=== PATIENT | female | born 1955 | race Caucasian/White ===

== ENCOUNTER 2023-08-21 16:00 | Inpatient (IN) | payer MEDICARE, SELFPAY ==
[2023-08-21] VITALS (46 sets, daily range): BP systolic 114–163; BP diastolic 40–119; PULSE 58–139; RESP 10–27; TEMP 35.6–36.5; O2SAT 94–100
--- NOTE | 2023-08-21 16:00 | RT.EKG_ITS ---
APPROVED REPORT Exam: Resting ECG Reason for Exam: altered mental status Patient Location: E HR:73 bpm ECG Measurements Heart Rate 73 AXIS CO 220 P 80 QRSd 105 QRS 21 QT 381 T 81 QTc 422 Conclusion Sinus rhythm 73 no stemi
--- NOTE | 2023-08-21 16:15 | DI.RAD_ITS ---
Exam(s) XR CHEST 1V IN DI DEPT EXAM: XR CHEST 1V IN DI DEPT CLINICAL HISTORY: ams TECHNIQUE: 2D digital imaging was performed of the chest. One image was obtained. An AP view was ob tained. COMPARISON: No exams were available for comparison FINDINGS: MEDIASTINUM: Normal. HEART: Normal. PULMONARY VASCULATURE: Normal. LUNGS: Clear. PLEURAL SPACE: No pleural effusion or pneumothorax. BONE:Within normal limits for the patient's age. OTHER FINDINGS:Normal. IMPRESSION: No acute pulmonary findings. DATA REPOSITORY: RADIATION DOSE DELIVERED:
[2023-08-21 16:46] LABS: Abs Immature Grans 0.06 10^3/uL (0.0-0.06); Absolute Basophil Count 0.01 10^3/uL (0.0-0.2); Absolute Eosinophil Count 0.01 10^3/uL (0.0-0.7); Absolute Lymphocyte Count 0.39 10^3/uL (1.2-3.4); Absolute Monocyte Count 0.23 10^3/uL (0.1-0.8); Absolute Neutrophil Count 7.18 10^3/uL (1.2-6.7); Basophils % 0.1 %; Eosinophils % 0.1 %; HCT 26.9 % (36.0-46.0); HGB 8.9 g/dL (11.2-15.7); Immature Grans % 0.8 %; Lymphocytes % 4.9 %; MCH 30.5 pg (27.0-33.0); MCHC 33.1 % (32.0-36.0); MCV 92 fL (80-95); MPV 11.2 fL (8.0-11.0); Monocytes % 2.9 %; Neutrophils % 91.2 %; Nucleated RBC 0.5 % (0.0-0.3); Platelet Count 234 10^3/uL (130-400); RBC 2.92 10^6/uL (3.93-5.22); RDW 16.1 % (11.7-14.6); RDW-SD 53.9 fL; WBC 7.88 10^3/uL (4.4-10.8)
[2023-08-21 16:59] LABS: Ammonia < 10 umol/L (11-32); Diff Comment RBC Morph Reviewed; RBC Morphology Normal
[2023-08-21 17:14] LABS: ALT 33 U/L (14-59); AST 19 U/L (15-37); Albumin 2.9 g/dL (3.4-5.0); Alkaline Phosphatase 195 U/L (46-116); Anion Gap 10.6 mmol/L (3-11); BUN 71 mg/dL (7-18); Bilirubin, Total 0.6 mg/dL (0.2-1.0); CO2 23.4 mmol/L (21.0-32.0); CREATININE 2.3 mg/dL (0.55-1.02); Calcium 10.6 mg/dL (8.5-10.1); Chloride 105 mmol/L (98-107); Estimated GFR 23.01 (mL/min/1.73m2); Glucose 185 mg/dL (74-106); Potassium 5.7 mmol/L (3.5-5.1); Sodium 139 mmol/L (136-145); Total Protein 6.9 g/dL (6.4-8.2); Troponin I < 50 ng/L (< or =60)
[2023-08-21 17:23] LABS: ETHANOL BLOOD < 3.0 mg/dL (<10)
--- NOTE | 2023-08-21 17:24 | DI.CT_ITS ---
Exam(s) CT HEAD WO EXAM: CT HEAD WO CLINICAL HISTORY: ams. TECHNIQUE: Imaging Protocol: Axial computed tomography images with coronal and sagittal reformatted images were created and reviewed COMPARISON: No exams were available for comparison FINDINGS: Ventricles and Extra axial spaces: Normal in size and morphology for the patient's age. Hemorrhage: None. Cerebral parenchyma: Normal. No mass effect. Midline shift: None. Brainstem/Cerebellum: Normal. Calvarium: Normal. Visualized Paranasal sinuses/Mastoids: Small mucous retention cysts are seen in the left maxillary si nus. Soft Tissues: Unremarkable. IMPRESSION: No acute intracranial process. RADIATION DOSE DELIVERED: 763.24mGy.cm Total DLP DATA REPOSITORY: All CT scans at this facility are submitted to the National Radiology Data Registry (NRDR) Dose Index Registry (DIR) with the [employer] (A[employer]). RADIATION OPTIMIZATION: All CT scans at this facility use at least one of these dose optimization te chniques: automated exposure control; mA and/or kV adjustment per patient size (includes targeted exa ms where dose is matched to clinical indication); or iterative reconstruction.
--- NOTE | 2023-08-21 17:41 | DI.VRAD_ITS ---
PROCEDURE INFORMATION: Exam: XR Chest Exam date and time: 08/21/2023 4:59 PM Age: 67 years old Clinical indication: Other: AMS TECHNIQUE: Imaging protocol: Radiologic exam of the chest. Views: 1 view. Total images: 1 COMPARISON: No relevant prior studies available. FINDINGS: Lungs: Lungs are clear without consolidation. Pleural spaces: No pleural effusion or pneumothorax. Heart/Mediastinum: Unremarkable. Diaphragm: Eventration right hemidiaphragm. Bones/joints: Unremarkable. IMPRESSION: No acute findings. Dictated and Authenticated by: Kade Farley MD. Ordering:[facility] Jose Daniel Arechiga MD
--- NOTE | 2023-08-21 17:47 | DI.VRAD_ITS ---
PROCEDURE INFORMATION: Exam: CT Head Without Contrast Exam date and time: 08/21/2023 5:13 PM Age: 67 years old Clinical indication: Altered mental status/memory loss; Patient HX: AMS TECHNIQUE: Imaging protocol: Computed tomography of the head without contrast. Total images: 983 COMPARISON: No relevant prior studies available. FINDINGS: Brain: No intra or extra-axial bleed. No edema. Cortical ribbon and central pereira structures are preserved. Mild cortical atrophy and white matter disease. Cerebral ventricles: No significant hydrocephalus. Basal cisterns are patent. Paranasal sinuses: Mild left maxillary sinus mucosal thickening. Mastoid air cells: No mastoid effusion. Bones: Unremarkable. No acute fracture. Soft tissues: Unremarkable. IMPRESSION: No acute intracranial abnormality. Dictated and Authenticated by: Kade Farley MD. Ordering:LuanneYOLA Arechiga MD
[2023-08-21 18:03] LABS: Bilirubin Negative (Negative); Blood Trace-intact (Negative); Clarity Clear (Clear); Glucose 100 mg/dL (Negative); Ketones Negative (Negative); Leukocyte Esterase Negative (Negative); Nitrite Negative (Negative); Specific Gravity 1.015 (1.005-1.025); Urobilinogen 0.2 mg/dL (Up to 0.2); pH 5.5 (5-8)
[2023-08-21 18:11] LABS: Bacteria Negative HPF (Negative); C & S Indicated? No; Casts 0-2 Hyaline LPF (Negative); Crystals Negative HPF (Negative); Epithelial Cells Rare HPF (Negative); Mucus Trace (Negative); RBC 0-2 HPF (0-2); WBC 0-2 HPF (0-5)
[2023-08-21] MEDS: Albuterol 2.5 MG/3 ML INH SOLN VIAL 5 MG UPD (19:07)
[2023-08-21] MEDS: Insulin REGULAR-Human 100 UNITS/ML UNIT SC (19:08)
--- NOTE | 2023-08-21 19:28 | ED.GENADUL_ITS ---
Discharge Plan Disposition Patient Disposition: Admit to [facility] Condition: Stable Discharge Details Chief Complaint: AMS/LOC Clinical Impression: Steroid-induced psychosis, with hallucinations, Delirium, CKD (chronic kidney disease), Hyperkalemia Primary Care Provider: Unknown,Unknown ED Provider: Ganesh Sky Home Meds and New Rx's Prescriptions: No Action acetaminophen 325 mg capsule 650 mg PO Q4H PRN albuterol-budesonide 90-80 mcg/actuation HFA aerosol inhaler 2 inh inhalation BID PRN Eliquis 5 mg tablet 5 mg PO BID famotidine [Acid Controller] 20 mg tablet 20 mg PO DAILY fluticasone propionate [Allergy Relief (fluticasone)] 50 mcg/actuation spray,suspension 1 spray intranasal BID PRN Rx Instructions: administer into each nostril furosemide 20 mg tablet 20 mg PO DAILY insulin lispro [Humalog KwikPen Insulin] 100 unit/mL insulin pen 1 sliding scale dose subcut USEASDIRECTD melatonin 5 mg capsule 7 mg PO .daily hs polyethylene glycol 3350 [ClearLax] 17 gram powder in packet 17 g PO ONCE PRN Rx Instructions: give if no bowel movement in past 72 hours HPI General Date/Time Provider Initiated Documentation: 08/21/23 16:15 . Limitations to Documentation: altered mental status . Information obtained by: patient, EMS and old records reviewed . HPI Narrative: 67-year-old female with past medical history including asthma, CKD, heart failure, paroxysmal A-fib, CVA, diabetes, sarcoidosis and recent treatment for pneumonia presents from the rehab facility with concerns for altered mental status. Per report, the patient developed altered mental status yesterday. She has been hallucinating and saying things that are very abnormal and confused. The patient was admitted to [facility] with pneumonia and discharged to the rehab facility on August 17. They report that new medicine was started and they are concerned that this is related to that. Patient is not able to provide any additional information at this time Related Data Home Medications Medication Instructions Recorded Confirmed acetaminophen 325 mg capsule 650 mg PO Q4H PRN 08/21/23 08/21/23 albuterol 90 mcg-budesonide 80 2 inh inhalation BID PRN 08/21/23 08/21/23 mcg/actuation HFA aerosol inhaler apixaban 5 mg tablet (Eliquis) 5 mg PO BID 08/21/23 08/21/23 famotidine 20 mg tablet (Acid 20 mg PO DAILY 08/21/23 08/21/23 Controller) fluticasone propionate 50 1 spray intranasal BID PRN 08/21/23 08/21/23 mcg/actuation nasal spray,suspension (Allergy Relief (fluticasone)) furosemide 20 mg tablet 20 mg PO DAILY 08/21/23 08/21/23 insulin lispro 100 unit/mL 1 sliding scale dose subcut 08/21/23 08/21/23 subcutaneous pen (Humalog KwikPen USEASDIRECTD (U-100) Insulin) melatonin 5 mg capsule 7 mg PO .daily hs 08/21/23 08/21/23 polyethylene glycol 3350 17 gram 17 g PO ONCE PRN 08/21/23 08/21/23 oral powder packet (ClearLax) General Stated Complaint: AMS/LOC SUZAN: 3 Exam Narrative Exam Narrative: Review of Systems: All systems reviewed & are unremarkable except as noted in HPI and below Well-developed, no acute distress NCAT PERRL, normal conjunctiva RRR, no murmur Unlabored respiratory effort, coarse bilaterally, no increased respiratory effort or hypoxia Nondistended abdomen nontender Extremities w/o deformity, no cyanosis, no edema No rashes or lesions. no focal neurologic deficits Alert, unable to answer questions, EMS reports that she thought she had a dog in her lap, tells the nurse that Jeovany is going to be here soon Course Vital Signs Vital signs: Vital Signs Temperature 36.5 C 08/21/23 16:06 Pulse 75 08/21/23 16:06 Respiratory Rate 16 08/21/23 16:06 Blood Pressure 126/100 H 08/21/23 16:06 Pulse Oximetry 94 08/21/23 16:06 Temperature 36.5 C 08/21/23 16:06 Temperature Source Temporal Artery Scan 08/21/23 16:06 Pulse 100 H 08/21/23 19:07 Respiratory Rate 19 08/21/23 19:07 Respiratory Effort Normal 08/21/23 16:13 Blood Pressure 126/100 H 08/21/23 16:06 Blood Pressure Position Supine 08/21/23 16:06 Pulse Oximetry 100 08/21/23 19:07 Oxygen Delivery Method Room Air 08/21/23 19:07 Oxygen Flow Rate 0 08/21/23 19:07 Lab/Test Results Lab/Test Results: Laboratory Tests Range/Units 08/21/23 08/21/23 16:40 17:58 WBC (4.4-10.8) 10^3/uL 7.88 RBC (3.93-5.22) 10^6/uL 2.92 L Hgb (11.2-15.7) g/dL 8.9 L Hct (36.0-46.0) % 26.9 L MCV (80-95) fL 92 MCH (27.0-33.0) pg 30.5 MCHC (32.0-36.0) % 33.1 RDW (11.7-14.6) % 16.1 H Plt Count (130-400) 10^3/uL 234 MPV (8.0-11.0) fL 11.2 H Immature Gran % % 0.8 Neutrophils % % 91.2 Lymphocytes % % 4.9 Monocytes % % 2.9 Eosinophils % % 0.1 Basophils % % 0.1 Nucleated RBC % (0.0-0.3) % 0.5 H Absolute Neutrophils (1.2-6.7) 10^3/uL 7.18 H Absolute Lymphocytes (1.2-3.4) 10^3/uL 0.39 L Absolute Monocytes (0.1-0.8) 10^3/uL 0.23 Absolute Eosinophils (0.0-0.7) 10^3/uL 0.01 Absolute Basophils (0.0-0.2) 10^3/uL 0.01 RBC Morphology Normal Sodium (136-145) mmol/L 139 Potassium (3.5-5.1) mmol/L 5.7 H Chloride (98-107) mmol/L 105 Carbon Dioxide (21.0-32.0) mmol/L 23.4 Anion Gap (3-11) mmol/L 10.6 BUN (7-18) mg/dL 71 H Creatinine (0.55-1.02) mg/dL 2.3 H Est GFR (CKD-EPI 2020) (mL/min/1.73m2) 23.01 Glucose (74-106) mg/dL 185 H Calcium (8.5-10.1) mg/dL 10.6 H Magnesium (1.8-2.4) mg/dL 2.0 Total Bilirubin (0.2-1.0) mg/dL 0.6 AST (15-37) U/L 19 ALT (14-59) U/L 33 Alkaline Phosphatase (46-116) U/L 195 H Ammonia (11-32) umol/L < 10 L Troponin I (< or =60) ng/L < 50 Total Protein (6.4-8.2) g/dL 6.9 Albumin (3.4-5.0) g/dL 2.9 L TSH (0.36-3.74) uIU/mL 3.20 Urine Color (Yellow) Yellow Urine Clarity (Clear) Clear Urine pH (5-8) 5.5 Ur Specific [place] (1.005-1.025) 1.015 Urine Protein (Neg-Trace) mg/dL 100 H Urine Ketones (Negative) mg/dL Negative Urine Blood (Negative) Trace-intact H Urine Nitrite (Negative) Negative Urine Bilirubin (Negative) Negative Urine Urobilinogen (Up to 0.2) mg/dL 0.2 Ur Leukocyte Esterase (Negative) Negative Urine RBC (0-2) HPF 0-2 Urine WBC (0-5) HPF 0-2 Ur Epithelial Cells (Negative) HPF Rare Urine Crystals (Negative) HPF Negative Urine Bacteria (Negative) HPF Negative Urine Casts (Negative) LPF 0-2 Hyaline Urine Mucus (Negative) Trace Ur Culture Indicated? No Urine Glucose (Negative) mg/dL 100 H Ethyl Alcohol (<10) mg/dL < 3.0 Medical Decision Making Emergent evaluation of altered mental status. Initial differential includes infectious etiology, steroid psychosis, less likely CVA. I reviewed the medical record and discharge summary from the hospital visit. Patient had multifocal pneumonia and was treated with antibiotics. She also had KENDALL with hyperkalemia thought to be secondary to hypovolemia. She is on apixaban for her A-fib, she has heart failure with preserved EF. Her Lasix was being held secondary to the hypokalemia and renal issues. When she was discharged to the rehab, she was started on steroids due to her history of sarcoidosis. 1900 Lab work reviewed. Anemia noted at 8.9 and 26.9 which appears to be stable from prior. Mild hyperkalemia. Creatinine slightly above baseline which is apparently around 1.8. BUN elevated around 70. I reviewed the prior records and noted that the patient had been had been having hyperkalemia throughout her hospital course and as well and his BUN in the 50s. She has no evidence of urinary tract infection. Chest x-ray and head CT also without acute etiologies explaining her altered mental status. I discussed kidney function changes with the joiner apprentice at [facility]. She does not recommend emergent dialysis and states that it is unlikely her altered mental status is secondary to her uremia. She suspects some azotemia from steroids. Perhaps hypercalcemia from her sarcoidosis which may also be contributing to her increase in creatinine. She does recommend an increased furosemide dose. I noted that it was stopped during her hospitalization, but it is on her med rec from the rehab facility. Discussed with the hospitalist who will admit the patient for delirium further management. Medical Records Medical records reviewed: Yes I reviewed the patient's medical records. Lab Data Lab results reviewed: Yes I reviewed the patient's lab results. Quality:SDOH Health Related Social Needs: No Data to Display PFSH All Active Problems (Updated 08/21/23 @ 20:44 by Ganesh Sky MD) Delirium (Acute) Paroxysmal A-fib (Acute) CKD (chronic kidney disease) (Chronic) Hyperkalemia (Acute) Steroid-induced psychosis, with hallucinations (Acute) Social History Smoking risk assessment performed?: No Housing: prison
--- NOTE | 2023-08-21 19:59 | HPE_ITS ---
Date of service: 08/21/23 Time of Service: 19:59 Assessment and Plan Assessment and plan (1) Steroid-induced psychosis, with hallucinations: Status: Acute Assessment and plan: - Patient began to have auditory hallucinations while at subacute rehab appears to correlate with the initiation of steroids -Will hold steroids at this time and continue to monitor patient's mental status -Head CT negative -While BUN was elevated to 71, and was increased as compared to patient's discharge as compared to 4 days prior to her arrival, case was discussed with nephrology did not believe that BUNs time-ordered. Exploring patient's mental status change (2) Hyperkalemia: Status: Acute Assessment and plan: - Also discussed with nephrology, presumed to be secondary to possible azotemia from steroids -potassium 5.7 emergency department and was given 1 L normal saline -Follow-up repeat potassium (3) CKD (chronic kidney disease): Status: Chronic Assessment and plan: - Patient is comparatively admitted with increased baseline creatinine of about 2.1 is slightly elevated today. -Will follow-up with deon TREJO (4) Paroxysmal A-fib: Status: Acute Assessment and plan: - Continue home Eliquis History of Present Illness History of Present Illness Chief Complaint: AMS Narrative: 66-year-old female with a past medical history of dizziness, CKD, heart failure, paroxysmal A-fib, CVA, diabetes, sarcoidosis who was recently discharged from room 6. She for pneumonia presents from home with severe rehab facility for altered mental status. Per report from rehab facility patient had change from her reported mental status that began yesterday when she was hallucinating apparently having visual and auditory hallucinations. Additionally, reports that patient was started on steroids since being at subacute rehab and this may correlate with her recent mental status change. In the emergency department the patient was noted as having normal vital signs, normal CBC, but did have a CMP that showed a potassium of 5.7, BUN of 70 And a creatinine of 2.3. When reviewing the patient's recent discharge records from [facility] it appears that her potassium at that time was 5.3, her BUN was in the 50s and her creatinine was 2.1. UA was negative as was head CT and chest x-ray. Emergency room physician discussed case with nephrology given concern for encephalopathy due to uremia. Nephrology did not believe patient would require dialysis as BUN is not high enough. However, it is thought that patient may be having a steroid-induced psychosis given timeline appears to line up with initiation of her steroids. While in the emergency department the patient was given IV fluids, emergency room physician paged hospitalist for admission for patient with toxic encephalopathy potentially due steroids. Review of Systems All systems reviewed & are unremarkable except as noted in HPI and below PFSH All Active Problems (Updated 08/21/23 @ 20:44 by Ganesh Sky MD) Delirium (Acute) Paroxysmal A-fib (Acute) CKD (chronic kidney disease) (Chronic) Hyperkalemia (Acute) Steroid-induced psychosis, with hallucinations (Acute) Social History Smoking/Tobacco Use Status: Unknown Smoking risk assessment performed?: Yes Housing: assisted living facility Meds Allergies and Home Medications Home Medications Medication Instructions Recorded Confirmed Type acetaminophen 325 mg capsule 650 mg PO Q4H PRN 08/21/23 08/21/23 History albuterol 90 mcg-budesonide 80 2 inh inhalation BID PRN 08/21/23 08/21/23 History mcg/actuation HFA aerosol inhaler apixaban 5 mg tablet (Eliquis) 5 mg PO BID 08/21/23 08/21/23 History famotidine 20 mg tablet (Acid 20 mg PO DAILY 08/21/23 08/21/23 History Controller) fluticasone propionate 50 1 spray intranasal BID PRN 08/21/23 08/21/23 History mcg/actuation nasal spray,suspension (Allergy Relief (fluticasone)) furosemide 20 mg tablet 20 mg PO DAILY 08/21/23 08/21/23 History insulin lispro 100 unit/mL 1 sliding scale dose subcut 08/21/23 08/21/23 History subcutaneous pen (Humalog KwikPen USEASDIRECTD (U-100) Insulin) melatonin 5 mg capsule 7 mg PO .daily hs 08/21/23 08/21/23 History polyethylene glycol 3350 17 gram 17 g PO ONCE PRN 08/21/23 08/21/23 History oral powder packet (ClearLax) Exam Narrative Exam Narrative: Well-appearing older female lying in bed in no acute distress, awake, alert, oriented to person and place but continues to have ongoing auditory and visual hallucinations, heart regular rhythm, lungs clear to auscultation bilaterally, abdomen soft, nontender, nondistended Results Labs 08/21/23 16:40 08/21/23 16:40 Labs: Laboratory Results - last 24 hr 08/21/23 08/21/23 16:40 17:58 WBC 7.88 RBC 2.92 L Hgb 8.9 L Hct 26.9 L MCV 92 MCH 30.5 MCHC 33.1 RDW 16.1 H Plt Count 234 MPV 11.2 H Immature Gran % 0.8 Neutrophils % 91.2 Lymphocytes % 4.9 Monocytes % 2.9 Eosinophils % 0.1 Basophils % 0.1 Nucleated RBC % 0.5 H Absolute Neutrophils 7.18 H Absolute Lymphocytes 0.39 L Absolute Monocytes 0.23 Absolute Eosinophils 0.01 Absolute Basophils 0.01 RBC Morphology Normal Sodium 139 Potassium 5.7 H Chloride 105 Carbon Dioxide 23.4 Anion Gap 10.6 BUN 71 H Creatinine 2.3 H Est GFR (CKD-EPI 2020) 23.01 Glucose 185 H Calcium 10.6 H Magnesium 2.0 Total Bilirubin 0.6 AST 19 ALT 33 Alkaline Phosphatase 195 H Ammonia < 10 L Troponin I < 50 Total Protein 6.9 Albumin 2.9 L TSH 3.20 Urine Color Yellow Urine Clarity Clear Urine pH 5.5 Ur Specific [place] 1.015 Urine Protein 100 H Urine Ketones Negative Urine Blood Trace-intact H Urine Nitrite Negative Urine Bilirubin Negative Urine Urobilinogen 0.2 Ur Leukocyte Esterase Negative Urine RBC 0-2 Urine WBC 0-2 Ur Epithelial Cells Rare Urine Crystals Negative Urine Bacteria Negative Urine Casts 0-2 Hyaline Urine Mucus Trace Ur Culture Indicated? No Urine Glucose 100 H Ethyl Alcohol < 3.0 Last Vital Signs Temp 97.7 F 08/21/23 16:06 Pulse 100 H 08/21/23 19:07 Resp 19 08/21/23 19:07 BP 126/100 H 08/21/23 16:06 Pulse Ox 100 08/21/23 19:07 Time Spent Time spent with Patient: >75 minutes Time was spent: preparing to see the patient(eg.review tests), obtaining and/or reviewing separately otained hiistory, ordering medications,tests, procedures, referring, communicating with other health client care consultant, indepentently interpreting results, counseling the patient and care coordination
[2023-08-21] MEDS: Normal Saline Flush 10 ML SYR IVP ×2 (20:39→23:43)
[2023-08-21] MEDS: Apixaban 5 MG TAB PO (23:43)
[2023-08-22 03:19] VITALS: BP 128/67; PULSE 70; RESP 18; TEMP 36.3; O2SAT 99
[2023-08-22 06:46] LABS: HCT 23.5 % (36.0-46.0); MCH 30.3 pg (27.0-33.0); MCHC 33.6 % (32.0-36.0); MCV 90 fL (80-95); MPV 11.9 fL (8.0-11.0); Platelet Count 229 10^3/uL (130-400); RBC 2.61 10^6/uL (3.93-5.22); RDW 16.2 % (11.7-14.6); RDW-SD 53.4 fL; WBC 7.67 10^3/uL (4.4-10.8)
[2023-08-22 07:03] LABS: Anion Gap 10.5 mmol/L (3-11); BUN 72 mg/dL (7-18); CO2 24.5 mmol/L (21.0-32.0); CREATININE 2.2 mg/dL (0.55-1.02); Calcium 10.5 mg/dL (8.5-10.1); Chloride 109 mmol/L (98-107); Estimated GFR 24.27 (mL/min/1.73m2); Glucose 114 mg/dL (74-106); Magnesium 2.1 mg/dL (1.8-2.4); Potassium 4.9 mmol/L (3.5-5.1); Sodium 144 mmol/L (136-145)
[2023-08-22 07:17] LABS: HGB 7.9 g/dL (11.2-15.7)
[2023-08-22 07:24] VITALS: BP 130/80; PULSE 62; RESP 18; TEMP 35.2; O2SAT 100
[2023-08-22] MEDS: Furosemide 20 MG TAB PO (07:44)
[2023-08-22] MEDS: Famotidine 20 MG TAB PO (07:44)
[2023-08-22] MEDS: Normal Saline Flush 10 ML SYR IVP (07:44)
--- NOTE | 2023-08-22 09:18 | NUR.NOTE ---
Nursing Note: pt stated good morning puppy no dog in room, pt keeps talking about ready to take everyone 'home'
--- NOTE | 2023-08-22 11:11 | PDOC.CMIN ---
Date of service: 08/22/23 Time of Service: 11:19 Care Management Initial Assmt Initial Assessment REASON FOR HOSPITALIZATION:: toxic encephalopathy PREVIOUS FUNCTIONAL STATUS/SOCIAL/FAMILY SUPPORTS:: Jaye lives in [place] with her s/o, Malcom, and their daughter, Pancho. Her sister, Ursula, is her HCA (Ursula will bring a copy of this form), and is very supportive. Jaye is currently having short term rehab at [facility]. Jaye is independent with ADL's at baseline. CURRENT FUNCTIONAL STATUS:: Tonie was sitting up in her chair when CM met with her. She stated that she is feeling much better today. Her s/o, Malcom, and daughter, Pancho, were in the room visiting. Malcom stated that Tonie had been at [facility] for about a week before being sent to [facility] for short term rehab, where she arrived on 08/18/23. CM explained that once Tonie is medically cleared, she will return to [facility] for continued rehab. Later, CM met with Ursula, Tonie's sister, who reported that she is her HCA, and will provide the form ([facility] also has a copy of this). CM again reviewed the plan for Tonie to return to [facility], which everyone is in agreement with. Ursula requested that CM provide an update tomorrow morning ([phone]), as she is OBS and may be ready for discharge tomorrow. CM will continue to follow. ADVANCE DIRECTIVES:: Not on file; Tonie stated that she has forms at [facility], naming her sister Ursula as HCA. Has patient been provided with info about the portal/API?: Yes Did the patient sign up for the portal?: No CODE STATUS:: Full Code INSURANCE COVERAGE / FINANCIAL ISSUES:: MCR CURRENT HOME/COMMUNITY SERVICES/EQUIPMENT:: Tonie is currently receiving short term rehab at [facility] PRIMARY CARE PHYSICIAN:: not local POTENTIAL DISCHARGE NEEDS:: Coordinated return to [facility] PATIENT/FAMILY EDUCATION NEEDS:: Review discharge instructions and limitations, discussion of self care needs including ask me three. ANTICIPATED BARRIERS TO DISCHARGE:: None identified. TRANSPORTATION:: Via facility w/c van PLAN:: Anticipate Tonie will return to [facility] once medically cleared. CM will coordinate transport with the facility's w/c van. She will follow up with facility providers and her discharge plan of care. CM will continue to follow. PFSH All Active Problems (Updated 08/22/23 @ 15:21 by Jewel Rea) Anemia (Chronic) Delirium (Acute) Paroxysmal A-fib (Acute) CKD (chronic kidney disease) (Chronic) Hyperkalemia (Acute) Steroid-induced psychosis, with hallucinations (Acute) Social History Smoking/Tobacco Use Status: Unknown Smoking risk assessment performed?: Yes Housing: assisted living facility SDOH(Care Management) Screening Will the Patient Participate in the Screening?: Unable to obtain
--- NOTE | 2023-08-22 11:14 | W.ANESVAS ---
Midline Placement Date Performed: 08/22/23 Procedure Time: 11:03 Requesting Provider: Jovanny Gary Procedure Location: Med/Surg Sedation Given (Indicate Dose Given): No Sedation given Patient Mental Status: Awake Sterility: Hand Hygiene, Surgical Cap, Surgical Mask, Sterile Gloves, Sterile Drape/Sheet and Chlorhexidine Laterality: Right Insertion Site: Basilic Midline Device: PowerGlide Pro 20G Catheter Length: 10 cm Midline Procedure Procedure: 1% Lidocaine to skin and subcutaneous tissue with 25g needle and Catheter placed without resistance Dressing: Tegaderm Applied and Statlock Applied Blood Return: Present Flushes: Easily Ultrasound: Sterile probe cover and gel used Ultrasound Image Saved?: Yes Number of Attempts (See previous attempts in note section): 1 Procedure Tolerated: No Complications Procedure Outcome: Successful Procedure Comment:: Technically challenging, very small vessels. Performed By: Qasim Moreno
[2023-08-22 11:31] VITALS: BP 130/65; PULSE 71; RESP 17; TEMP 35.1; O2SAT 98
[2023-08-22 14:58] LABS: HCT 28.5 % (36.0-46.0); HGB 9.2 g/dL (11.2-15.7)
--- NOTE | 2023-08-22 15:13 | PGE_ITS ---
Date of Service Date of service: 08/22/23 Time of Service: 15:13 Assessment and Plan Assessment and plan (1) Steroid-induced psychosis, with hallucinations: Status: Acute Assessment and plan: - Patient began to have auditory hallucinations while at subacute rehab appears to correlate with the initiation of steroids. - Off steroids since admission, continue to monitor patient's mental status - Head CT negative -While BUN was elevated to 71 from 50s at discharge last week, per nephrology not significant enough to cause nidia uremia with MS changes. (2) Hyperkalemia: Status: Acute Assessment and plan: - Also discussed with nephrology, presumed to be secondary to possible azotemia from steroids. Normalized this morning. (3) CKD (chronic kidney disease): Status: Chronic Assessment and plan: - She is near her baseline creatinine of about 2.1 - follow (4) Anemia: Status: Chronic Assessment and plan: Dropped from 8.9 to 7.9 this morning after some IV fluids, but reassuringly 9.2 on repeat this afternoon. Get iron levels with morning labs. (5) Paroxysmal A-fib: Status: Acute Assessment and plan: - Continue home apixaban, held 5/7 am due to drop in hgb/hct, she can resume based on PM hgb. Subjective Subjective Patient reports: tolerating a regular diet and voiding w/o difficulty; denies nausea, shortness of breath or fever Interval history since last seen: She states she feels fine and wants to go home. Per family and her primary RN this morning she was hallucinating a dog, petting it. She denies to me seeing things or hearing things that aren't there. Her breathing has improved, coughi ng less. Exam Narrative Exam Narrative: Well-appearing older female sitting in chair in no acute distress, awake, alert, oriented to person, place, and time. Heart regular rhythm, lungs clear to auscultation bilaterally, abdomen soft, nontender, nondistended. Ext 1-2 + bilateral pitting edema (normal for her per report), not tender. Objective Last Vital Signs Temp 35.1 C L 08/22/23 11:31 Pulse 71 08/22/23 11:31 Resp 17 08/22/23 11:31 BP 130/65 08/22/23 11:31 Pulse Ox 98 08/22/23 11:31 Laboratory Results - last 24 hr 08/21/23 08/21/23 08/21/23 16:40 17:58 21:30 WBC 7.88 RBC 2.92 L Hgb 8.9 L Hct 26.9 L MCV 92 MCH 30.5 MCHC 33.1 RDW 16.1 H Plt Count 234 MPV 11.2 H Immature Gran % 0.8 Neutrophils % 91.2 Lymphocytes % 4.9 Monocytes % 2.9 Eosinophils % 0.1 Basophils % 0.1 Nucleated RBC % 0.5 H Absolute Neutrophils 7.18 H Absolute Lymphocytes 0.39 L Absolute Monocytes 0.23 Absolute Eosinophils 0.01 Absolute Basophils 0.01 RBC Morphology Normal Sodium 139 Cancelled Potassium 5.7 H Cancelled Chloride 105 Cancelled Carbon Dioxide 23.4 Cancelled Anion Gap 10.6 Cancelled BUN 71 H Cancelled Creatinine 2.3 H Cancelled Est GFR (CKD-EPI 2020) 23.01 Cancelled Glucose 185 H Cancelled Calcium 10.6 H Cancelled Magnesium 2.0 Total Bilirubin 0.6 AST 19 ALT 33 Alkaline Phosphatase 195 H Ammonia < 10 L Troponin I < 50 Total Protein 6.9 Albumin 2.9 L TSH 3.20 Urine Color Yellow Urine Clarity Clear Urine pH 5.5 Ur Specific [place] 1.015 Urine Protein 100 H Urine Ketones Negative Urine Blood Trace-intact H Urine Nitrite Negative Urine Bilirubin Negative Urine Urobilinogen 0.2 Ur Leukocyte Esterase Negative Urine RBC 0-2 Urine WBC 0-2 Ur Epithelial Cells Rare Urine Crystals Negative Urine Bacteria Negative Urine Casts 0-2 Hyaline Urine Mucus Trace Ur Culture Indicated? No Urine Glucose 100 H Ethyl Alcohol < 3.0 08/22/23 08/22/23 06:18 14:50 WBC 7.67 RBC 2.61 L Hgb 7.9 L 9.2 L Hct 23.5 L 28.5 L MCV 90 MCH 30.3 MCHC 33.6 RDW 16.2 H Plt Count 229 MPV 11.9 H Immature Gran % Neutrophils % Lymphocytes % Monocytes % Eosinophils % Basophils % Nucleated RBC % Absolute Neutrophils Absolute Lymphocytes Absolute Monocytes Absolute Eosinophils Absolute Basophils RBC Morphology Sodium 144 Potassium 4.9 Chloride 109 H Carbon Dioxide 24.5 Anion Gap 10.5 BUN 72 H Creatinine 2.2 H Est GFR (CKD-EPI 2020) 24.27 Glucose 114 H Calcium 10.5 H Magnesium 2.1 Total Bilirubin AST ALT Alkaline Phosphatase Ammonia Troponin I Total Protein Albumin TSH Urine Color Urine Clarity Urine pH Ur Specific [place] Urine Protein Urine Ketones Urine Blood Urine Nitrite Urine Bilirubin Urine Urobilinogen Ur Leukocyte Esterase Urine RBC Urine WBC Ur Epithelial Cells Urine Crystals Urine Bacteria Urine Casts Urine Mucus Ur Culture Indicated? Urine Glucose Ethyl Alcohol Time Spent with Patient Time Spent with Patient: 35-49 minutes Time was spent: preparing to see the patient(eg.review tests), obtaining and/or reviewing separately otained hiistory, ordering medications,tests, procedures, referring, communicating with other health primary care physician, indepentently interpreting results and counseling the patient
[2023-08-22 15:33] VITALS: BP 112/78; PULSE 68; RESP 17; TEMP 36.5; O2SAT 96
[2023-08-22 19:47] VITALS: BP 124/76; PULSE 66; RESP 18; TEMP 36.6; O2SAT 92
[2023-08-22] MEDS: Apixaban 5 MG TAB PO (22:39)
[2023-08-22 23:40] VITALS: BP 118/60; PULSE 69; RESP 18; TEMP 36.6; O2SAT 98
[2023-08-23 02:49] VITALS: BP 140/71; PULSE 80; RESP 18; TEMP 36.6; O2SAT 92
[2023-08-23 07:02] LABS: HCT 24.7 % (36.0-46.0); HGB 8.2 g/dL (11.2-15.7); MCH 30.6 pg (27.0-33.0); MCHC 33.2 % (32.0-36.0); MCV 92 fL (80-95); MPV 11.8 fL (8.0-11.0); Platelet Count 207 10^3/uL (130-400); RBC 2.68 10^6/uL (3.93-5.22); RDW 16.2 % (11.7-14.6); WBC 8.74 10^3/uL (4.4-10.8)
[2023-08-23 07:15] LABS: Anion Gap 7.2 mmol/L (3-11); BUN 79 mg/dL (7-18); CO2 25.8 mmol/L (21.0-32.0); CREATININE 2.2 mg/dL (0.55-1.02); Calcium 10.1 mg/dL (8.5-10.1); Chloride 109 mmol/L (98-107); Estimated GFR 24.27 (mL/min/1.73m2); Glucose 123 mg/dL (74-106); Potassium 5.2 mmol/L (3.5-5.1); Sodium 142 mmol/L (136-145)
[2023-08-23 07:20] LABS: Iron 58 ug/dL (50-170); Total Iron Binding Capacity 221 ug/dL (250-450); Transferrin Sat 26 % (15-50)
[2023-08-23] MEDS: Furosemide 20 MG TAB PO (08:05)
[2023-08-23] MEDS: Apixaban 5 MG TAB PO (08:05)
[2023-08-23] MEDS: Famotidine 20 MG TAB PO (08:05)
[2023-08-23 08:08] VITALS: BP 166/63; PULSE 80; RESP 16; TEMP 35.9; O2SAT 92
--- NOTE | 2023-08-23 10:27 | PDOC.CMPRO ---
Date of service: 08/23/23 Time of Service: 10:27 Care Management Progress Note Progress Note Text Progress Note Text: S/O: Jaye is medically ready to discharge back to [facility]. CM left a message for her sister Ursula advising her of discharge readiness and plan. Hospitalists is also reaching out to her sister. A: 67 year old female admitted to [facility] on 08/21/23 with toxic encephalopathy P: Anticipate Tonie will return to [facility] once medically cleared. CM will coordinate transport with the facility's w/c van. She will follow up with facility providers and her discharge plan of care. CM will continue to follow. SDOH(Care Management) Screening Will the Patient Participate in the Screening?: Unable to obtain
[2023-08-23 11:15] VITALS: BP 114/62; PULSE 64; RESP 16; TEMP 35; O2SAT 97
--- NOTE | 2023-08-23 13:26 | W.PM.DS.N ---
Date of service: 08/23/23 Time of Service: 13:26 DS: Diagnosis Discharge Diagnosis (1) Steroid-induced psychosis, with hallucinations: Status: Acute Asessment and Plan: Much improved from admission. (2) Hyperkalemia: Status: Acute Asessment and Plan: mild, follow up 1 week (3) CKD (chronic kidney disease): Status: Chronic Asessment and Plan: stable while inpatient from recent admission, but needs nephrology follow up. BP stable. Repeat BMP 1 week (4) Anemia: Status: Chronic Asessment and Plan: stable, normal iron levels, needs EPO therapy due to CKD associated anemia. (5) Paroxysmal A-fib: Status: Acute Asessment and Plan: anticoagulated, no change. Discharge Plan Disposition [facility] Disposition[facility]) Condition: Improving Discharge Details Reason For Visit: Toxic encephalopathy Admit Date/Time: 08/23/23 09:35 Admit Provider: Jovanny Gary Attending Provider: Jovanny Gary Primary Care Provider: Unknown,Unknown Hospital Course Hospital Course: 67 yo F with baseline stage 4 CKD, chronic atrial fibrillation, h/o CVA, and sarcoidosis [facility] with acute hallucinations that started after given steroids at the time of recent discharge from [facility] where she was treated for pneumonia. She was having visual hallucinations of dogs and was disoriented to situation. CT head, u/a, CXR, and ammonia were all reassuring. Initially admitting team did not have her CKD history and were concerned about acute uremia causing her hallucinations, but nephrology consulted in the ED and records obtained that did not show a significant change from the levels a week prior. Her BUN stayed in the 70s and creatinine was 2.3-2.2. Her potassium was 5.7 at admission, then 4.8, 5.2 without specific treatment. Her anemia was stable, with transferrin saturation 25%, and she should follow up for EPO therapy along with the rest of her renal disease care with nephrology. Home Meds and New Rx's Prescriptions: Continued acetaminophen 325 mg capsule 650 mg PO Q4H PRN albuterol-budesonide 90-80 mcg/actuation HFA aerosol inhaler 2 inh inhalation BID PRN Eliquis 5 mg tablet 5 mg PO BID famotidine [Acid Controller] 20 mg tablet 20 mg PO DAILY fluticasone propionate [Allergy Relief (fluticasone)] 50 mcg/actuation spray,suspension 1 spray intranasal BID PRN Rx Instructions: administer into each nostril furosemide 20 mg tablet 20 mg PO DAILY insulin lispro [Humalog KwikPen Insulin] 100 unit/mL insulin pen 1 sliding scale dose subcut USEASDIRECTD melatonin 5 mg capsule 7 mg PO .daily hs polyethylene glycol 3350 [ClearLax] 17 gram powder in packet 17 g PO ONCE PRN Rx Instructions: give if no bowel movement in past 72 hours Discharge Instructions Instructions: Chronic Kidney Disease (DC), Chronic Kidney Disease Diet (DC) Additional Instructions: follow up with nephrology (kidney specialist) at [facility]. You should check the kidneys again with a blood test in a week. avoid oral or IV steroids in the future Activity:: Activity as Tolerated Equipment/Supplies:: Blood Glucose Monitor Diet:: low potassium/renal Discharge Orders Discharge Orders: Discharge Order (Routine); Ordered 08/23/23 Ordered By: Jewel Rea Other Ambulatory Orders: Basic Metabolic Panel (Routine) Timeframe: 1 Week Facility: [facility] - Location: Laboratory Outpatient - [facility] Ordered By: Jewel Rea Complete Blood Count w/Diff (Routine) Timeframe: 1 Week Facility: [facility] - Location: Laboratory Outpatient - [facility] Ordered By: Jewel Rea DS: Summary Time Spent with Patient providing and/or coordinating discharge services: Greater than 30 minutes Status at Discharge Functional status at discharge: uses cane/walker Overall status at discharge: patient is progressing back to baseline Mental Status: mental status grossly normal Speech and Movement: speech and movement normal Mood: congruent mood Affect: normal affect Quality:SDOH Health Related Social Needs: No Data to Display Exam Narrative Exam Narrative: Well-appearing older female sitting in chair in no acute distress, awake, alert, oriented to person, place, and time. Heart regular rhythm, lungs clear to auscultation bilaterally, abdomen soft, nontender, nondistended. Ext 1+ bilateral pitting edema (normal for her per report), not tender. Psych Mental Status: mental status grossly normal Speech and Movement: speech and movement normal Mood: congruent mood Affect: normal affect DS: Data Vitals/I&O Vitals and I&O: Vital Signs Temperature 35.0 C L 08/23/23 11:15 Temperature Source Tympanic 08/23/23 11:15 Pulse 64 08/23/23 11:15 Pulse Rhythm Regular 08/23/23 10:14 Pulse 115 H 08/21/23 20:31 Respiratory Rate 16 08/23/23 11:15 Respiratory Effort Normal 08/23/23 10:14 Respiratory Depth Normal 08/23/23 10:14 Respiratory Pattern Normal 08/23/23 10:14 Blood Pressure 114/62 08/23/23 11:15 Blood Pressure Mean 124 08/21/23 20:31 Blood Pressure Position Supine 08/21/23 16:06 Pulse Oximetry 97 08/23/23 11:15 Oxygen Delivery Method Room Air 08/23/23 11:15 Oxygen Flow Rate 0 08/23/23 11:15 Pain Level 0 08/23/23 11:15 Intake & Output 08/22/23 08/23/23 08/23/23 23:59 11:59 23:59 Intake Total 240 / 720 360 / 360 Output Total 100 / 450 500 / 500 Balance 140 / 270 360 / -140 -500 / -140 Intake: Oral 240 / 720 360 / 360 Output: Urine 100 / 450 500 / 500 Other: Urine Color Yellow Yellow Urine Appearance Clear Clear Urine Odor None Comment mixed with stool mixed with stool/cloudy Stool Size Smear Moderate Moderate Stool Characteristics Soft Formed Formed Hard Brown Voiding Methods Diaper Incontinent Data Completed and Pending Labs on day of discharge: Labs from last 24 hours 08/23/23 08/22/23 06:13 14:50 WBC 8.74 RBC 2.68 L Hgb 8.2 L 9.2 L Hct 24.7 L 28.5 L MCV 92 MCH 30.6 MCHC 33.2 RDW 16.2 H Plt Count 207 MPV 11.8 H Sodium 142 Potassium 5.2 H Chloride 109 H Carbon Dioxide 25.8 Anion Gap 7.2 BUN 79 H Creatinine 2.2 H Est GFR (CKD-EPI 2020) 24.27 Glucose 123 H Calcium 10.1 Iron 58 TIBC 221 L Transferrin % Sat 26 PFSH All Active Problems (Updated 08/22/23 @ 15:21 by Jewel Rea) Anemia (Chronic) Delirium (Acute) Paroxysmal A-fib (Acute) CKD (chronic kidney disease) (Chronic) Hyperkalemia (Acute) Steroid-induced psychosis, with hallucinations (Acute) Social History Smoking/Tobacco Use Status: Unknown Smoking risk assessment performed?: Yes Housing: assisted living facility Time Spent with Patient Time Spent with Patient: 45-69 minutes Time was spent: preparing to see the patient(eg.review tests), obtaining and/or reviewing separately otained hiistory, ordering medications,tests, procedures, referring, communicating with other health healthcare management consultant, indepentently interpreting results, counseling the patient and care coordination
--- NOTE | 2023-08-23 13:55 | PDOC.CMDIS ---
Date of service: 08/23/23 Time of Service: 13:55 LACE Index Scoring Tool Questions: Length of Stay (in days): 2 Was the patient admitted via the E.D.?: Yes Comorbidities: Liver or Renal Disease E.D. Visits: 1 Answers: Total Score: 11 Risk of Readmission: High Risk Care Management Discharge Plan Reason for Hospitalization: toxic encephalopathy Discharge Plan: Jaye is discharged back to [facility]. She is transported via facility w/c van. Jaye will follow up with facility/community providers and her discharge plan of care as instructed. CM left message for Ursula ([facility]) prior to her discharge. Patient/Family Education Needs: Review discharge instructions, limitations, medications and plan to follow up with outpatient providers. Discuss ask me three. Services Needed at Discharge: Detention Facility ([place] [facility]) [facility] Health Related Social Needs: No Data to Display
--- NOTE | 2023-08-23 14:00 | NUR.NOTE ---
Nursing Note: [facility] to give nurse to nurse report and was unable to reach anyone on unit to give report. Message was left to return the call.
== END 2023-08-23 14:30 | disposition skilled nursing facility (03) | DRG 885 ==
LOC: ER 20:44 → MS 21:05
PROVIDERS: Family Medicine; Admitting Provider Family Medicine; Emergency Provider Emergency Medicine; Visit Provider Family Medicine
DX: F23 Brief psychotic disorder (principal); N18.4 Chronic kidney disease, stage 4 (severe); I50.30 Unspecified diastolic (congestive) heart failure; T38.0X5A Adverse effect of glucocorticoids and synthetic analogues, initial encounter; E87.5 Hyperkalemia; I48.0 Paroxysmal atrial fibrillation; Z86.73 Personal history of transient ischemic attack (TIA), and cerebral infarction without residual deficits; E11.22 Type 2 diabetes mellitus with diabetic chronic kidney disease; Z79.4 Long term (current) use of insulin; D86.9 Sarcoidosis, unspecified; Z79.01 Long term (current) use of anticoagulants; D64.9 Anemia, unspecified
CPT/HCPCS: 36410; 00123; 36415; 36416; 76942; 80048; 80053; 82962; 85027; 93005; 94640; 99285; 70450; 71045; 80320; 81003; 81015; 82140; 83540; 83550; 83735; 84443; 84484; 85014; 85018; 85025; 93010; 99222; 99232; 99239; G0378; J1815; J7613

== ENCOUNTER 2023-08-30 05:18 | Outpatient (REF) | payer MEDICARE, SELFPAY ==
[2023-08-30 05:47] LABS: Abs Immature Grans 0.06 10^3/uL (0.0-0.06); Absolute Basophil Count 0.01 10^3/uL (0.0-0.2); Absolute Eosinophil Count 0.15 10^3/uL (0.0-0.7); Absolute Monocyte Count 0.61 10^3/uL (0.1-0.8); Absolute Neutrophil Count 6.18 10^3/uL (1.2-6.7); Anion Gap 8.8 mmol/L (3-11); BUN 64 mg/dL (7-18); Basophils % 0.1 %; CO2 24.2 mmol/L (21.0-32.0); CREATININE 2.1 mg/dL (0.55-1.02); Calcium 9.5 mg/dL (8.5-10.1); Chloride 110 mmol/L (98-107); Eosinophils % 1.8 %; Estimated GFR 25.67 (mL/min/1.73m2); Glucose 110 mg/dL (74-106); HCT 26.1 % (36.0-46.0); HGB 8.6 g/dL (11.2-15.7); Immature Grans % 0.7 %; Lymphocytes % 15.6 %; MCH 30.7 pg (27.0-33.0); MCV 93 fL (80-95); MPV 12.1 fL (8.0-11.0); Monocytes % 7.3 %; Neutrophils % 74.5 %; Nucleated RBC 0.2 % (0.0-0.3); Platelet Count 154 10^3/uL (130-400); Potassium 5.1 mmol/L (3.5-5.1); RDW 17.2 % (11.7-14.6); Sodium 143 mmol/L (136-145); WBC 8.31 10^3/uL (4.4-10.8)
[2023-08-30 05:53] LABS: Anisocytosis 2+; Diff Comment RBC Morph Reviewed
[2023-08-30 20:46] LABS: Bilirubin Negative (Negative); Blood Moderate (Negative); Clarity Cloudy (Clear); Glucose Negative (Negative); Ketones Negative (Negative); Leukocyte Esterase Moderate (Negative); Nitrite Negative (Negative); Urobilinogen 0.2 mg/dL (Up to 0.2); pH 5.5 (5-8)
[2023-08-30 21:18] LABS: Bacteria Many HPF (Negative); C & S Indicated? Yes; Casts Negative LPF (Negative); Crystals Negative HPF (Negative); Epithelial Cells Rare HPF (Negative); Mucus Negative (Negative); Other Cells Rare Transitional (Negative); WBC >50 HPF (0-5)
== END 2023-08-30 05:19 | disposition home or self-care (01) ==
LOC: LBN 05:18
PROVIDERS: PCP Family Medicine; Visit Provider Family Medicine
DX: D64.9 Anemia, unspecified (principal); N18.9 Chronic kidney disease, unspecified; N39.0 Urinary tract infection, site not specified
CPT/HCPCS: 80048; 87077; 81003; 81015; 85025; 87086; 87186

== ENCOUNTER 2023-09-08 07:52 | Outpatient (REF) | payer MEDICARE, SELFPAY ==
[2023-09-07 18:22] LABS: Abs Immature Grans 0.02 10^3/uL (0.0-0.06); Absolute Basophil Count 0.01 10^3/uL (0.0-0.2); Absolute Eosinophil Count 0.12 10^3/uL (0.0-0.7); Absolute Lymphocyte Count 0.81 10^3/uL (1.2-3.4); Absolute Monocyte Count 0.31 10^3/uL (0.1-0.8); Absolute Neutrophil Count 4.14 10^3/uL (1.2-6.7); Basophils % 0.2 %; Eosinophils % 2.2 %; HCT 26.6 % (36.0-46.0); HGB 8.5 g/dL (11.2-15.7); Immature Grans % 0.4 %; MCH 30.4 pg (27.0-33.0); MCV 95 fL (80-95); MPV 12.1 fL (8.0-11.0); Monocytes % 5.7 %; Neutrophils % 76.5 %; Platelet Count 132 10^3/uL (130-400); RDW 17.9 % (11.7-14.6); RDW-SD 61.3 fL; WBC 5.41 10^3/uL (4.4-10.8)
[2023-09-07 18:34] LABS: Anion Gap 8.7 mmol/L (3-11); BUN 42 mg/dL (7-18); CO2 24.3 mmol/L (21.0-32.0); CREATININE 2.9 mg/dL (0.55-1.02); Calcium 9.4 mg/dL (8.5-10.1); Chloride 104 mmol/L (98-107); Estimated GFR 17.42 (mL/min/1.73m2); Glucose 86 mg/dL (74-106); Potassium 4.1 mmol/L (3.5-5.1); Sodium 137 mmol/L (136-145)
[2023-09-07 19:02] LABS: Diff Comment RBC Morph Reviewed; Hypochromasia 2+
== END 2023-09-08 07:53 | disposition home or self-care (01) ==
LOC: LBN 07:52
PROVIDERS: PCP Family Medicine; Visit Provider Family Medicine
DX: D64.9 Anemia, unspecified (principal); J18.9 Pneumonia, unspecified organism; N18.4 Chronic kidney disease, stage 4 (severe)
CPT/HCPCS: 80048; 85025

== ENCOUNTER 2023-09-11 14:47 | Inpatient (IN) | payer MEDICARE, SELFPAY ==
[2023-09-11] VITALS (79 sets, daily range): BP systolic 94–222; BP diastolic 26–177; PULSE 59–82; RESP 10–22; TEMP 32.8–36.1; O2SAT 85–100
--- NOTE | 2023-09-11 15:00 | RT.EKG_ITS ---
APPROVED REPORT Exam: Resting ECG Reason for Exam: ams Patient Location: E HR:60 bpm ECG Measurements Heart Rate 60 AXIS WA 218 P 0 QRSd 106 QRS 25 QT 478 T 61 QTc 478 Conclusion Sinus rhythm...normal P axis, V-rate 60- 99 Borderline prolonged WA interval...WA >212, V-rate 50- 90 Probable lateral infarct, old...Q>35mS, abnormal ST-T, V5-6 I aVL sinus rhythm, normal axis, prolonged WA, non ischemic
--- NOTE | 2023-09-11 15:25 | ED.GENADUL_ITS ---
Discharge Plan Disposition Patient Disposition: Admit to [facility] Condition: Stable Discharge Details Chief Complaint: Nausea/Vomit/Diar Clinical Impression: UTI (urinary tract infection), Hypothermia Primary Care Provider: Elmer Perdomo ED Provider: Remington Rubio Home Meds and New Rx's Prescriptions: No Action acetaminophen 325 mg capsule 650 mg PO Q4H PRN albuterol-budesonide 90-80 mcg/actuation HFA aerosol inhaler 2 inh inhalation BID PRN Eliquis 5 mg tablet 5 mg PO BID famotidine [Acid Controller] 20 mg tablet 20 mg PO DAILY fluticasone propionate [Allergy Relief (fluticasone)] 50 mcg/actuation spray,suspension 1 spray intranasal BID PRN Rx Instructions: administer into each nostril furosemide 20 mg tablet 20 mg PO DAILY insulin lispro [Humalog KwikPen Insulin] 100 unit/mL insulin pen 1 sliding scale dose subcut USEASDIRECTD melatonin 5 mg capsule 7 mg PO .daily hs polyethylene glycol 3350 [ClearLax] 17 gram powder in packet 17 g PO ONCE PRN Rx Instructions: give if no bowel movement in past 72 hours HPI General Date/Time Provider Initiated Documentation: 09/11/23 14:54 . HPI Narrative: 67-year-old female history of delirium anemia A-fib CKD presents brought in by EMS from group home for evaluation of nausea and vomiting. Related Data Home Medications Medication Instructions Recorded Confirmed acetaminophen 325 mg capsule 650 mg PO Q4H PRN 08/21/23 09/11/23 albuterol 90 mcg-budesonide 80 2 inh inhalation BID PRN 08/21/23 09/11/23 mcg/actuation HFA aerosol inhaler apixaban 5 mg tablet (Eliquis) 5 mg PO BID 08/21/23 09/11/23 famotidine 20 mg tablet (Acid 20 mg PO DAILY 08/21/23 09/11/23 Controller) fluticasone propionate 50 1 spray intranasal BID PRN 08/21/23 09/11/23 mcg/actuation nasal spray,suspension (Allergy Relief (fluticasone)) furosemide 20 mg tablet 20 mg PO DAILY 08/21/23 09/11/23 insulin lispro 100 unit/mL 1 sliding scale dose subcut 08/21/23 08/21/23 subcutaneous pen (Humalog KwikPen USEASDIRECTD (U-100) Insulin) melatonin 5 mg capsule 7 mg PO .daily hs 08/21/23 09/11/23 polyethylene glycol 3350 17 gram 17 g PO ONCE PRN 08/21/23 09/11/23 oral powder packet (ClearLax) Allergies Allergy/AdvReac Type Severity Reaction Status Date / Time prednisone AdvReac Severe Psychosis Verified 09/11/23 20:51 latex AdvReac Intermediate Skin Rash Unverified 09/11/23 20:51 metformin AdvReac Mild Unknown Unverified 09/11/23 20:51 General Stated Complaint: Nausea/Vomit/Diar SUZAN: 3 Review of Systems Narrative: Review of Systems Constitutional: negative Eyes: negative ENT: negative Cardiovascular: negative Respiratory: negative Gastrointestinal: Nausea vomiting : negative Musculoskeletal: negative Skin: negative Neurologic: negative Psych: negative Exam Narrative Exam Narrative: Physical Examination General: alert, awake, cooperative, resting comfortably, no acute distress HEENT: normocephalic, atraumatic; PERRL, EOM intact, conjunctiva normal; no nasal discharge; moist mucous membranes, oral and pharyngeal mucosa normal, tolerating secretions Neck: supple, trachea midline; full ROM Chest: normal to inspection Respiratory: normal respiratory effort, speaking in full sentences, clear to auscultation, no wheezing, rales or rhonchi Cardiac: regular rate, regular rhythm, S1S2 intact, no murmurs rubs or gallops GI: abdomen soft, non-tender, non-distended; no palpable mass or hepatosplenomegaly Skin: no lesions, rashes or trauma appreciated Neuro: Alert and interactive moving all extremities 5-5 strength upper and lower extremities bilaterally, cranial nerves II through XII intact, no nystagmus no truncal ataxia Extremities: Mild peripheral edema to level of ankles Psych: Appropriate mood and affect Course Vital Signs Vital signs: Vital Signs Temperature 36.1 C L 09/11/23 14:48 Pulse 60 09/11/23 14:48 Respiratory Rate 18 09/11/23 14:48 Blood Pressure 100/76 09/11/23 14:48 Pulse Oximetry 100 09/11/23 14:48 Temperature 36.1 C L 09/11/23 14:48 Temperature Source Temporal Artery Scan 09/11/23 14:48 Pulse 60 09/11/23 14:48 Respiratory Rate 18 09/11/23 14:48 Respiratory Effort Normal, Non-Labored 09/11/23 14:54 Blood Pressure 100/76 09/11/23 14:48 Blood Pressure Position Supine 09/11/23 14:48 Pulse Oximetry 100 09/11/23 14:48 Oxygen Delivery Method Room Air 09/11/23 14:48 Oxygen Flow Rate 0 09/11/23 14:48 Pain Level 0 09/11/23 14:48 Medical Decision Making 67-year-old female presents for group home endorsing nausea and vomiting, denies abdominal pain chest pain or shortness of breath denies headache or weakness. Patient Dors is feeling dehydrated. Alert interactive no focal neurodeficits. Afebrile nontoxic hemodynamically stable. Consider electrolyte derangement versus dehydration versus vertigo versus must consider intracranial hemorrhage given nausea vomiting age and blood thinner use low suspicion for CVA was also consider intra-abdominal process such as cholecystitis appendicitis colitis diverticulitis enteritis. Also consider UTI. Lower consideration for traumatic injury or intoxication. Will obtain labs imaging fluids analgesia antiemetics 21: 35 improving symptomatology after fluids antiemetics and warming, evidence of UTI, mildly elevated lipase with some peripancreatic stranding on CT however nonperitoneal no further vomiting. Will continue with warming and IV fluids will admit to hospital for continued care Quality:SDOH Health Related Social Needs: No Data to Display PFSH All Active Problems (Updated 09/11/23 @ 21:36 by Remington Rubio MD) Hypothermia (Acute) UTI (urinary tract infection) (Acute) Anemia (Chronic) Delirium (Acute) Paroxysmal A-fib (Acute) CKD (chronic kidney disease) (Chronic) Hyperkalemia (Acute) Social History Smoking/Tobacco Use Status: Unknown Smoking risk assessment performed?: Yes Housing: assisted living facility
[2023-09-11 15:47] LABS: Abs Immature Grans 0.05 10^3/uL (0.0-0.06); Absolute Basophil Count 0.01 10^3/uL (0.0-0.2); Absolute Eosinophil Count 0.06 10^3/uL (0.0-0.7); Absolute Lymphocyte Count 0.43 10^3/uL (1.2-3.4); Absolute Monocyte Count 0.37 10^3/uL (0.1-0.8); Absolute Neutrophil Count 5.94 10^3/uL (1.2-6.7); Basophils % 0.1 %; Eosinophils % 0.9 %; HCT 26.1 % (36.0-46.0); HGB 8.7 g/dL (11.2-15.7); Immature Grans % 0.7 %; Lymphocytes % 6.3 %; MCH 30.7 pg (27.0-33.0); MCHC 33.3 % (32.0-36.0); MCV 92 fL (80-95); MPV 12.1 fL (8.0-11.0); Monocytes % 5.4 %; Neutrophils % 86.6 %; Nucleated RBC 0.3 % (0.0-0.3); Platelet Count 108 10^3/uL (130-400); RBC 2.83 10^6/uL (3.93-5.22); RDW 17.7 % (11.7-14.6); RDW-SD 59.4 fL; WBC 6.86 10^3/uL (4.4-10.8)
[2023-09-11] MEDS: Normal Saline 500 ML 1000 ML IV (15:51)
[2023-09-11] MEDS: Ondansetron 4 MG/2 ML VIAL IVP (15:52)
[2023-09-11 16:04] LABS: INR 1.4 (0.9-1.1); PTT Activated 48.6 sec (23.6-32.8); Prothrombin Time 13.7 sec (9.1-11.1)
[2023-09-11 16:10] LABS: ALT 37 U/L (14-59); AST 30 U/L (15-37); Albumin 2.7 g/dL (3.4-5.0); Alkaline Phosphatase 183 U/L (46-116); BUN 35 mg/dL (7-18); Bilirubin, Total 0.5 mg/dL (0.2-1.0); Calcium 9.5 mg/dL (8.5-10.1); Chloride 102 mmol/L (98-107); Estimated GFR 16.73 (mL/min/1.73m2); Glucose 140 mg/dL (74-106); Lipase 108 U/L (16-77); Magnesium 2.5 mg/dL (1.8-2.4); NT-proBNP 453 pg/mL (<300); Potassium 4.3 mmol/L (3.5-5.1); Sodium 135 mmol/L (136-145); TSH (W/Ref FT4) 7.63 uIU/mL (0.36-3.74); Total Protein 6.4 g/dL (6.4-8.2)
[2023-09-11 16:11] LABS: Troponin I 75 ng/L (< or =60)
[2023-09-11 16:23] LABS: COVID-19 PCR Negative (Negative); Influenza A PCR Negative (Negative); Influenza B PCR Negative (Negative); RSV PCR Negative (Negative); Source NASOPHARYNX
[2023-09-11 16:30] LABS: FREE T4 1.05 ng/dL (0.76-1.46)
--- NOTE | 2023-09-11 16:56 | DI.CT_ITS ---
Exam(s) CT ABDOMEN PELVIS WO EXAM: CT ABDOMEN PELVIS WO CLINICAL HISTORY: nausea vomiting. TECHNIQUE: Imaging Protocol: Axial computed tomography images with coronal and sagittal reformatted images were created and reviewed. Oral: no COMPARISON: No exams were available for comparison FINDINGS: Lung Bases: No acute findings. Mild fibrotic changes. Liver: Normal density. No suspicious mass. Gallbladder and biliary tract: Calcified stones. No abnormal gallbladder wall thickening or disten tion. No biliary dilatation. Pancreas: Somewhat atrophic.. No abnormal calcifications. Question of mild inflammation of the head . Spleen: Normal. Kidneys: Normal size, contour and axis. No radiodense stones. No obstructive uropathy. No suspicious masses seen. Adrenal glands: No masses seen. Lymph nodes: Mildly enlarged bilateral groin lymph nodes, presumably reactive. Vasculature: Abdominal aorta non-dilated. Soft tissues: Small fat containing umbilical hernia. Bladder: No wall thickening. No mass or calculi. Bowel: No obstruction or bowel wall thickening. Appendix normal. Peritoneal cavity: No ascites. No focal collection. No mesenteric inflammatory response. Reproductive organs: Status post hysterectomy. 3 centimeter cystic structure to the left of the uppe r vaginal cough. Bones: Unremarkable for age. IMPRESSION: Mild inflammation at the pancreatic head. No pancreatic ductal dilatation. Cholelithiasis. No evidence of acute cholecystitis. 3 centimeters cyst at the left vaginal cuff. RADIATION DOSE DELIVERED: Total DLP DATA REPOSITORY: All CT scans at this facility are submitted to the National Radiology Data Registry (NRDR) Dose Index Registry (DIR) with the [employer] ([employer]). RADIATION OPTIMIZATION: All CT scans at this facility use at least one of these dose optimization te chniques: automated exposure control; mA and/or kV adjustment per patient size (includes targeted exa ms where dose is matched to clinical indication); or iterative reconstruction.
--- NOTE | 2023-09-11 16:56 | DI.CT_ITS ---
Exam(s) CT HEAD WO EXAM: CT HEAD WO CLINICAL HISTORY: ams, vomiting, on AC. TECHNIQUE: Imaging Protocol: Axial computed tomography images with coronal and sagittal reformatted images were created and reviewed COMPARISON: CT CT HEAD WO from 08/21/2023 FINDINGS: Ventricles and Extra axial spaces: Normal in size and morphology for the patient's age. Hemorrhage: None. Cerebral parenchyma: No evidence of acute infarct or mass. Midline shift: None. Brainstem/Cerebellum: Normal. Calvarium: Normal. Visualized Paranasal sinuses:Mucous retention at the floor of the left maxillary sinus. Mastoids: Clear. Soft Tissues: Unremarkable. ORBITS: Unremarkable. PITUITARY: Not enlarged. IMPRESSION: No acute intracranial process. RADIATION DOSE DELIVERED: Total DLP DATA REPOSITORY: All CT scans at this facility are submitted to the National Radiology Data Registry (NRDR) Dose Index Registry (DIR) with the [employer] ([employer]). RADIATION OPTIMIZATION: All CT scans at this facility use at least one of these dose optimization te chniques: automated exposure control; mA and/or kV adjustment per patient size (includes targeted exa ms where dose is matched to clinical indication); or iterative reconstruction.
--- NOTE | 2023-09-11 17:00 | DI.RAD_ITS ---
Exam(s) XR CHEST 2V PA LATERAL EXAM: XR CHEST 2V PA LATERAL CLINICAL HISTORY: vomiting, lethargy TECHNIQUE: 2D digital imaging was performed. Two views. COMPARISON: CR,XR XR CHEST 1V IN DI DEPT from 08/21/2023 FINDINGS: Exam limited by suboptimal pulmonary inflation. HEART: Normal size. Aorta: Not dilated. PULMONARY VASCULATURE: Normal. LUNGS: Clear. PLEURAL SPACE: No pleural effusion or pneumothorax. BONE:Unremarkable for age. Soft tissues: Unremarkable. IMPRESSION: No acute abnormality. DATA REPOSITORY: RADIATION DOSE DELIVERED:
--- NOTE | 2023-09-11 17:31 | DI.VRAD_ITS ---
PROCEDURE INFORMATION: Exam: CT Head Without Contrast Exam date and time: 09/11/2023 4:45 PM Age: 67 years old Clinical indication: Altered mental status/memory loss and other: Vomiting; Confusion or disorientation; Patient HX: AMS, vomiting, on ac TECHNIQUE: Imaging protocol: Computed tomography of the head without contrast. Radiation optimization: All CT scans at this facility use at least one of these dose optimization techniques: automated exposure control; mA and/or kV adjustment per patient size (includes targeted exams where dose is matched to clinical indication); or iterative reconstruction. COMPARISON: CT HEAD WO 08/21/2023 5:13 PM FINDINGS: Brain: No acute intracranial hemorrhage.. There is mild diffuse heterogeneity of the white matter attenuation, consistent with chronic white matter ischemic changes. Mild cerebral atrophy Cerebral ventricles: No ventriculomegaly. Paranasal sinuses: Mucoperiosteal thickening in the left maxillary sinus may represent sinusitis Mastoid air cells: Visualized mastoid air cells are well aerated. Bones: Unremarkable. No acute fracture. Soft tissues: Unremarkable. IMPRESSION: No acute intracranial hemorrhage.. Dictated and Authenticated by: Janet Michaels MD. Ordering:OMI Macedo MD
--- NOTE | 2023-09-11 18:11 | DI.VRAD_ITS ---
Addendum created by Kade Farley MD on 09/11/2023 6:18:05 PM EDT: Mild bilateral inguinal adenopathy, possibly reactive. Initial report created on 09/11/2023 6:10:57 PM EDT: PROCEDURE INFORMATION: Exam: CT Abdomen And Pelvis Without Contrast Exam date and time: 09/11/2023 4:48 PM Age: 67 years old Clinical indication: Nausea and vomiting; Patient HX: Nasuea vomiting TECHNIQUE: Imaging protocol: Computed tomography of the abdomen and pelvis without contrast. Total images: 3383 Radiation optimization: All CT scans at this facility use at least one of these dose optimization techniques: automated exposure control; mA and/or kV adjustment per patient size (includes targeted exams where dose is matched to clinical indication); or iterative reconstruction. COMPARISON: CR XR CHEST 1V IN DI DEPT 08/21/2023 4:59 PM FINDINGS: Diaphragm: Small hiatal hernia. Liver: No nodule. Gallbladder and bile ducts: Faceted gallstones without signs of gallbladder inflammation. Pancreas: Peripancreatic stranding. Spleen: No splenomegaly or splenic nodule. Adrenal glands: No adrenal nodule. Kidneys and ureters: No renal mass. No hydronephrosis. No renal or ureteral calculi. Stomach and bowel: No definite gastric or duodenal wall thickening. No small or large bowel dilatation. No definite bowel wall thickening. Appendix: No evidence of appendicitis. Intraperitoneal space: No free air or free fluid. Vasculature: No abdominal aortic aneurysm. Lymph nodes: Mildly enlarged predominantly fat containing inguinal nodes, left greater than right. Urinary bladder: No definite bladder wall thickening or stone. Reproductive: Hysterectomy. 3.3 cm well-circumscribed thin wall left retrovesicular cyst possibly related to the vaginal cuff. No surrounding inflammatory change. Bones/joints: Partial left-sided sacralization L5. Lower thoracic and L2-L3 degenerative disc disease. Soft tissues: Tiny umbilical hernia. IMPRESSION: 1. Acute interstitial edematous pancreatitis. 2. Cholelithiasis. Dictated and Authenticated by: Kade Farley MD. Ordering:OMI Macedo MD
--- NOTE | 2023-09-11 18:13 | DI.VRAD_ITS ---
PROCEDURE INFORMATION: Exam: XR Chest Exam date and time: 09/11/2023 4:56 PM Age: 67 years old Clinical indication: Other: Nasuea vomitting TECHNIQUE: Imaging protocol: Radiologic exam of the chest. Views: 2 views. Total images: 6 COMPARISON: CR XR CHEST 1V IN DI DEPT 08/21/2023 4:59 PM FINDINGS: Lungs: Lungs are clear without consolidation. Pleural spaces: No pleural effusion or pneumothorax. Heart/Mediastinum: Unremarkable. Diaphragm: Eventration right hemidiaphragm. Bones/joints: Unremarkable. IMPRESSION: No acute findings. Dictated and Authenticated by: Kade Farley MD. Ordering:OMI Macedo MD
[2023-09-11 19:16] LABS: Bilirubin Negative (Negative); Blood Trace-intact (Negative); Clarity Clear (Clear); Glucose Negative (Negative); Ketones Negative (Negative); Leukocyte Esterase Trace (Negative); Nitrite Negative (Negative); Specific Gravity 1.025 (1.005-1.025); Urobilinogen 0.2 mg/dL (Up to 0.2)
[2023-09-11] MEDS: Normal Saline 100 ML 200 ML (19:31)
[2023-09-11] MEDS: cefTRIAXone 1 GM VIAL IM (19:31)
[2023-09-11 19:32] LABS: Bacteria Rare HPF (Negative); C & S Indicated? No/Sq. Contamination; Casts 3-5 Hyaline LPF (Negative); Crystals Negative HPF (Negative); Epithelial Cells Many HPF (Negative); Mucus Trace (Negative); Other Cells Rare Transitional (Negative); RBC 0-2 HPF (0-2); WBC 20-50 HPF (0-5)
[2023-09-11 19:38] LABS: *AMPHETAMINES SCREEN URINE Negative (Negative); *BARBITURATES SCREEN URINE Negative (Negative); *BENZODIAZEPINES SCREEN URINE Negative (Negative); Cannabinoids THC Negative (Negative); Cocaine Screen,Urine Negative (Negative); METHADONE URINE SCREEN Negative (Negative); OPIATES URINE SCREEN Negative (Negative); Tricyclic Antidepressants Negative (Negative)
[2023-09-11 20:07] LABS: Troponin I 74 ng/L (< or =60)
--- NOTE | 2023-09-11 21:47 | NUR.NOTE ---
MAR has been requested 4 times from [facility] since arriving but we have yet to receive it, Meds are confirmed with family members with the exception of Insulin, family did not know what Insulin the pt takes, PAM
--- NOTE | 2023-09-11 22:29 | HPE_ITS ---
Date of service: 09/11/23 Time of Service: 22:29 Assessment and Plan Assessment and plan (1) UTI (urinary tract infection): Status: Acute Assessment and plan: New vomiting and positive urinalysis in a patient with recurrent UTIs. I agree with treating while awaiting cultures. Last culture 09/02 was MDRO klebsiela resistant to ceftriaxone so will change to pip/tazo. I would like to avoid floroquinones. Culture pending. (2) Pancreatitis: Status: Chronic Assessment and plan: CT and lipase suggest pancreatitis, though minimal sympotms. Her GLP-1 puts her at risk for this and it may be the primay cause. No other clear cause such as alcohol or gall stone. Can get u/s in AM to look again. NPO now, will allow clears when ready. Supportive care with fluids, pain management if needed. (3) Stage 4 chronic kidney disease: Status: Acute Assessment and plan: Cr slighty above baseline, follow (4) Elevated troponin: Status: Acute Assessment and plan: No change, and without chest pain or EKG changes this is not ACS. CKD contributing. May be type 2 ischemia related to acute infection Follow in AM or sooner if symptoms. Given full high intensity statin for now. She is anticoagulated as well. (5) Anemia: Status: Chronic Assessment and plan: Stable anemia of CKD. (6) Paroxysmal A-fib: Status: Acute Assessment and plan: continue anticoagulation and rate control. History of Present Illness History of Present Illness Chief Complaint: vomiting Narrative: 67 yo F resident of [facility] with dementia, h/o CVA, CKD4, DM pAfib who was recently admitted for steroid induced delerium with hallucinations after being given steroids who is presenting with 1 day of vomiting. Patient unable to relate history but sister report in her presence. She was in her normal states of health until this morning after breakfast when she got nauseous and started to vomit. Did not improve with antiemetics including ondansatron in the SNF, but continue with vomiting. She did not have blood in her vomit or coffee grounds. Never had diarrhea. She denies abdominal pain. She had some neck pain earlier that was new, but this has resolved. No headaches. She did feel feverish when she got here. Review of Systems All systems reviewed & are unremarkable except as noted in HPI and below PFSH All Active Problems Elevated troponin (Acute) Pancreatitis (Chronic) Stage 4 chronic kidney disease (Acute) Hypothermia (Acute) UTI (urinary tract infection) (Acute) Anemia (Chronic) Delirium (Acute) Paroxysmal A-fib (Acute) Hyperkalemia (Acute) Medical History Dementia Social History Smoking/Tobacco Use Status: Unknown Smoking risk assessment performed?: Yes Housing: house Meds Allergies and Home Medications Allergies Allergy/AdvReac Type Severity Reaction Status Date / Time prednisone AdvReac Severe Psychosis Verified 09/11/23 22:48 azithromycin AdvReac Intermediate Unknown Unverified 09/11/23 22:48 latex AdvReac Intermediate Skin Rash Unverified 09/11/23 22:48 semaglutide [From Ozempic] AdvReac Intermediate Unknown Unverified 09/11/23 22:48 metformin AdvReac Mild Unknown Unverified 09/11/23 22:48 Home Medications Medication Instructions Recorded Confirmed Type acetaminophen 325 mg capsule 650 mg PO Q4H PRN 08/21/23 09/11/23 History albuterol 90 mcg-budesonide 80 2 inh inhalation BID PRN 08/21/23 09/11/23 History mcg/actuation HFA aerosol inhaler apixaban 5 mg tablet (Eliquis) 5 mg PO BID 08/21/23 09/11/23 History famotidine 20 mg tablet (Acid 20 mg PO DAILY 08/21/23 09/11/23 History Controller) fluticasone propionate 50 1 spray intranasal BID PRN 08/21/23 09/11/23 History mcg/actuation nasal spray,suspension (Allergy Relief (fluticasone)) furosemide 20 mg tablet 20 mg PO DAILY 08/21/23 09/11/23 History insulin lispro 100 unit/mL 1 sliding scale dose subcut 08/21/23 08/21/23 History subcutaneous pen (Humalog KwikPen USEASDIRECTD (U-100) Insulin) melatonin 5 mg capsule 7 mg PO .daily hs 08/21/23 09/11/23 History polyethylene glycol 3350 17 gram 17 g PO ONCE PRN 08/21/23 09/11/23 History oral powder packet (ClearLax) Saccharomyces boulardii 250 mg 250 mg PO BID 09/11/23 09/11/23 History capsule (Daily Probiotic (S. boulardii)) bisacodyl 10 mg rectal suppository 10 mg AK DAILY PRN 09/11/23 09/11/23 History (Dulcolax (bisacodyl)) cefpodoxime 100 mg tablet 100 mg PO BID 09/11/23 09/11/23 History cholecalciferol (vitamin D3) 50 2,000 unit PO DAILY 09/11/23 09/11/23 History mcg (2,000 unit) tablet ciprofloxacin HCl 500 mg tablet 500 mg PO BID 09/11/23 09/11/23 History (Cipro) magnesium hydroxide 400 mg/5 mL 5 ml PO DAILY PRN 09/11/23 09/11/23 History oral suspension (Blackman Milk of Magnesia) nystatin 100,000 unit/gram topical 1 applic topical DAILY 09/11/23 09/11/23 History cream ondansetron 4 mg disintegrating 4 mg PO Q6H PRN 09/11/23 09/11/23 History tablet pantoprazole 40 mg granules 40 mg PO DAILY 09/11/23 09/11/23 History delayed-release for susp in packet (Protonix) rosuvastatin 10 mg tablet (Crestor) 10 mg PO DAILY 09/11/23 09/11/23 History sulfamethoxazole 800 1 tab PO DAILY 09/11/23 09/11/23 History mg-trimethoprim 160 mg tablet (Bactrim DS) tirzepatide 5 mg/0.5 mL 7.5 mg subcut QWEEK 09/11/23 09/11/23 History subcutaneous pen injector (Mounjaro) Exam Narrative Exam Narrative: GEN: Alert and oriented to self and time, thought we were in [place]. Pleasent and cooperative with direct commands, but unable to give history (sister relates this). No acute distress at rest. HEENT: Head atraumatic. Conjunctiva clear, no icterus. PEERL, EOMI. no rhinorrhea. MMM, OP benign. Neck is supple with no masses or lymphadenopathy, trachea midline LUNGS: CTAB with normal effort CV: RRR with 2-3/6 systolic murmur RUSB to neck, gallops, or rubs. ABD: +BS, soft, NT/ND EXT: no cyanosis, clubbing. trace nikita ankle edema. pedal pulses 2+ nikita. MSK: No joint redness or swelling NEURO: CN 2-12 grossly intact. Normal movement of 4 extremities. Normal speech and coordination. no tremor SKIN: No rashes or open wounds. shins pink beneath socks in lower shins nikita. PSYCH: normal mood and affect. poor memory Results Imaging Chest x-ray: report reviewed (No acute abnormality. ) and image reviewed Abdomen CT scan report/results: report reviewed (Mild inflammation at the pancreatic head. No pancreatic ductal dilatation. Cholelithiasis. No evidence of acute cholecystitis. 3 centimeters cyst at the left vaginal cuff.) A dditional studies: CT HEAD: No acute intracranial process. EKG: report reviewed and image reviewed (NSR, no ischemic ST-T changes) L abs 09/11/23 15:28 09/11/23 15:28 Labs: Laboratory Results - last 24 hr 09/11/23 09/11/23 09/11/23 15:28 15:37 18:43 WBC 6.86 RBC 2.83 L Hgb 8.7 L Hct 26.1 L MCV 92 MCH 30.7 MCHC 33.3 RDW 17.7 H Plt Count 108 L MPV 12.1 H Immature Gran % 0.7 Neutrophils % 86.6 Lymphocytes % 6.3 Monocytes % 5.4 Eosinophils % 0.9 Basophils % 0.1 Nucleated RBC % 0.3 Absolute Neutrophils 5.94 Absolute Lymphocytes 0.43 L Absolute Monocytes 0.37 Absolute Eosinophils 0.06 Absolute Basophils 0.01 PT 13.7 H INR 1.4 H APTT 48.6 H Sodium 135 L Potassium 4.3 Chloride 102 Carbon Dioxide 20.0 L Anion Gap 13.0 H BUN 35 H Creatinine 3.0 H Est GFR (CKD-EPI 2020) 16.73 Glucose 140 H Calcium 9.5 Magnesium 2.5 H Total Bilirubin 0.5 AST 30 ALT 37 Alkaline Phosphatase 183 H Troponin I 75 H* NT-Pro-B Natriuret Pep 453 H Total Protein 6.4 Albumin 2.7 L Lipase 108 H TSH 7.63 H Free T4 1.05 Urine Color Yellow Urine Clarity Clear Urine pH 7.0 Ur Specific [place] 1.025 Urine Protein >=300 H Urine Ketones Negative Urine Blood Trace-intact H Urine Nitrite Negative Urine Bilirubin Negative Urine Urobilinogen 0.2 Ur Leukocyte Esterase Trace H Urine RBC 0-2 Urine WBC 20-50 H Ur Epithelial Cells Many Urine Crystals Negative Urine Bacteria Rare Urine Casts 3-5 Hyaline Urine Mucus Trace Urine Other Rare Transitional Ur Culture Indicated? No/Sq. Contamination Urine Glucose Negative Urine Opiates Screen Negative Urine Methadone Screen Negative Ur Barbiturates Screen Negative Ur Tricyclics Screen Negative Ur Amphetamines Screen Negative U Benzodiazepines Scrn Negative Urine Cocaine Screen Negative Ur THC Screen Negative COVID-19 Source NASOPHARYNX SARS-CoV-2 (PCR) Negative Influenza Type A (PCR) Negative Influenza Type B (PCR) Negative RSV (PCR) Negative 09/11/23 19:39 WBC RBC Hgb Hct MCV MCH MCHC RDW Plt Count MPV Immature Gran % Neutrophils % Lymphocytes % Monocytes % Eosinophils % Basophils % Nucleated RBC % Absolute Neutrophils Absolute Lymphocytes Absolute Monocytes Absolute Eosinophils Absolute Basophils PT INR APTT Sodium Potassium Chloride Carbon Dioxide Anion Gap BUN Creatinine Est GFR (CKD-EPI 2020) Glucose Calcium Magnesium Total Bilirubin AST ALT Alkaline Phosphatase Troponin I 74 H* NT-Pro-B Natriuret Pep Total Protein Albumin Lipase TSH Free T4 Urine Color Urine Clarity Urine pH Ur Specific [place] Urine Protein Urine Ketones Urine Blood Urine Nitrite Urine Bilirubin Urine Urobilinogen Ur Leukocyte Esterase Urine RBC Urine WBC Ur Epithelial Cells Urine Crystals Urine Bacteria Urine Casts Urine Mucus Urine Other Ur Culture Indicated? Urine Glucose Urine Opiates Screen Urine Methadone Screen Ur Barbiturates Screen Ur Tricyclics Screen Ur Amphetamines Screen U Benzodiazepines Scrn Urine Cocaine Screen Ur THC Screen COVID-19 Source SARS-CoV-2 (PCR) Influenza Type A (PCR) Influenza Type B (PCR) RSV (PCR) Last Vital Signs Temp 34.3 C L 09/11/23 18:16 Pulse 69 09/11/23 21:48 Resp 11 L 09/11/23 21:50 BP 210/96 H 09/11/23 21:48 Pulse Ox 93 09/11/23 21:50 Time Spent Time spent with Patient: 55-74 minutes Time was spent: preparing to see the patient(eg.review tests), obtaining and/or reviewing separately otained hiistory, ordering medications,tests, procedures, referring, communicating with other health client care representative, indepentently interpreting results, counseling the patient and care coordination
--- NOTE | 2023-09-12 | DI.MRI_ITS ---
Exam(s) MR ABDOMEN WO EXAM: MR ABDOMEN WO CLINICAL HISTORY: cholelithiasis, pancratitis TECHNIQUE: Multiplanar multisequence MRI of the Abdomen was performed. COMPARISON: CT CT ABDOMEN PELVIS WO from 09/11/2023 US US ABDOMEN LIMITED from 09/12/2023 FINDINGS: Exam limited by motion. Lung bases: Clear. Liver: Unremarkable. Pancreas: Mild inflammation seen at the inferior pancreatic head. No evidence of mass. Gallbladder and Bile Ducts: There are 2 adjacent stones seen in the dependent portion of the gallblad marianne. No gallbladder wall thickening. The common bile duct measures 7 millimeters and tapers distall y. No common duct stones. No pancreatic ductal dilatation. Adrenals: Unremarkable. Kidneys: Unremarkable. Spleen: Unremarkable. Aorta: Unremarkable. Soft Tissues: Unremarkable. Bone: Unremarkable. Lymph Nodes: Unremarkable. Bowel: Unremarkable. IMPRESSION: Two adjacent gallstones. No evidence of gallbladder inflammation or biliary dilatation. No common d uct stones. Mild inflammation of the inferior head of the pancreas. DATA REPOSITORY:
[2023-09-12] MEDS: Melatonin 3 MG TAB 6 MG PO ×2 (00:18→21:54)
[2023-09-12 01:10] LABS: MRSA PCR Negative (Negative)
[2023-09-12] MEDS: Normal Saline Flush 10 ML SYR (05:42)
[2023-09-12] MEDS: PIPERACILLIN/TAZO 3.375 GM in Normal Saline 50 ML IVPB (05:42)
--- NOTE | 2023-09-12 06:00 | DI.US_ITS ---
Exam(s) US ABDOMEN LIMITED EXAM: US ABDOMEN LIMITED CLINICAL HISTORY: pancreatitis. cholethiasis, elevated bilirubin TECHNIQUE: Ultrasound abdomen performed using standard protocol. COMPARISON: CT CT ABDOMEN PELVIS WO from 09/11/2023 FINDINGS: PANCREAS: Normal where visualized. LIVER: Normal. Hepatopetal flow in the Portal Vein. The liver measures in 14.3 cm length. No evidence of a hepatic mass. GALLBLADDER:Gallstones are present. No evidence of wall thickening. No pericholecystic fluid identif ied. BILIARY SYSTEM: Common bile duct measures < 7 mm. No intrahepatic biliary ductal dilation. HUNT'S SIGN: Negative. RIGHT KIDNEY: Kidney is normal in size. No evidence of renal calculi. No evidence of hydronephrosis. No renal mass or cyst identified. ASCITES: None seen. IMPRESSION: Cholelithiasis. No sonographic evidence to suggest acute cholecystitis. DATA REPOSITORY:
[2023-09-12 07:27] LABS: Abs Immature Grans 0.04 10^3/uL (0.0-0.06); Absolute Basophil Count 0.01 10^3/uL (0.0-0.2); Absolute Eosinophil Count 0.08 10^3/uL (0.0-0.7); Absolute Lymphocyte Count 0.58 10^3/uL (1.2-3.4); Absolute Monocyte Count 0.37 10^3/uL (0.1-0.8); Absolute Neutrophil Count 4.81 10^3/uL (1.2-6.7); Basophils % 0.2 %; Eosinophils % 1.4 %; HCT 24.1 % (36.0-46.0); HGB 7.8 g/dL (11.2-15.7); Immature Grans % 0.7 %; Lymphocytes % 9.8 %; MCH 30.6 pg (27.0-33.0); MCHC 32.4 % (32.0-36.0); MCV 95 fL (80-95); MPV 12.2 fL (8.0-11.0); Monocytes % 6.3 %; Neutrophils % 81.6 %; Nucleated RBC 0.3 % (0.0-0.3); RBC 2.55 10^6/uL (3.93-5.22); RDW 18.6 % (11.7-14.6); RDW-SD 63.4 fL; WBC 5.89 10^3/uL (4.4-10.8)
[2023-09-12 07:42] LABS: INR 1.3 (0.9-1.1); Prothrombin Time 12.9 sec (9.1-11.1)
[2023-09-12 07:49] LABS: ALT 29 U/L (14-59); AST 39 U/L (15-37); Albumin 2.2 g/dL (3.4-5.0); Alkaline Phosphatase 158 U/L (46-116); Anion Gap 9.5 mmol/L (3-11); BUN 32 mg/dL (7-18); Bilirubin, Total 0.4 mg/dL (0.2-1.0); CO2 20.5 mmol/L (21.0-32.0); CREATININE 2.7 mg/dL (0.55-1.02); Calcium 8.9 mg/dL (8.5-10.1); Chloride 105 mmol/L (98-107); Estimated GFR 18.98 (mL/min/1.73m2); Glucose 62 mg/dL (74-106); Potassium 5.8 mmol/L (3.5-5.1); Sodium 135 mmol/L (136-145); Total Protein 5.9 g/dL (6.4-8.2)
[2023-09-12 07:51] VITALS: BP 96/64; PULSE 59; RESP 18; TEMP 35.8; O2SAT 99
[2023-09-12 07:59] LABS: Troponin I 77 ng/L (< or =60)
[2023-09-12 08:12] LABS: Diff Comment Diff Reviewed; Hypochromasia 1+; Platelet Count 89 10^3/uL (130-400)
[2023-09-12 08:18] LABS: Hemoglobin A1C 6.2 % (<5.7)
[2023-09-12] MEDS: Lactobacillus Acidophilus CAP 1 CAP PO ×2 (08:30→21:55)
[2023-09-12] MEDS: Famotidine 20 MG TAB PO (08:30)
[2023-09-12] MEDS: Rosuvastatin 10 MG TAB 20 MG PO (08:31)
--- NOTE | 2023-09-12 09:00 | RT.EKG_ITS ---
APPROVED REPORT Exam: Resting ECG Reason for Exam: elevated troponin Patient Location: I HR:66 bpm ECG Measurements Heart Rate 66 AXIS ND [id number] P [id number] QRSd 121 QRS 21 QT 454 T 31 QTc 476 Conclusion Sinus rhythm 1st degree AV block
[2023-09-12] MEDS: Normal Saline 500 ML 1000 ML IV (09:06)
[2023-09-12] MEDS: Pantoprazole 40 MG VIAL IVP (09:07)
--- NOTE | 2023-09-12 09:32 | INITIAL_ITS ---
Date of service: 09/12/23 Time of Service: 09:32 Care Management Initial Assmt Initial Assessment Reason for Hospitalization: UTI, Liver Disease Functional Status/Living Situation Patient Presentation: Jaye has been at [facility] for STR since 08/18/23. Her home is in [place], where she lives with her Daughter Palomo, whom is developmentally delayed. Jaye had a stroke 3 years ago and has since managed at home with the help of her daughter and sister Ursula. Ursula provides her transportation and helps her with pay her bills, they are currently in the process of getting DPOA paperwork, however finding legal support for the document has been a challenge. Ursula lives in [place] and visits Jaye every other day. Town of Residence: [place] Resides with: Child (Daughter Pancho, Developmentally Delayed. ) Significant Other/Family: [facility] [employer] Employment Status: Disabled Instrumental Activities of Daily Living (ADLs): Requires support with Transportation Medications Medication Management: No Issues/Barriers identified Advance Directives Advance Directives: Do you have an Advance Directive: N 08/21/23 21:05 AD On File at [facility]: N 08/21/23 18:39 Date Asked 08/21/23 08/21/23 18:39 AD Date Reviewed COLST On File at [facility] No 09/11/23 14:56 COLST Date Scanned Code Status Resuscitation Status Full Code Portal Pt does not currently have a portal and education provided: No Insurance Coverage/Financial Issues Insurance: [facility] ACO Member: No Care Team Visit Care Team Role Provider Type Elmer Perdomo Primary Care Provider MD [facility] STAFF PHYSICIAN Remington Rubio MD Emergency Provider [facility] STAFF PHYSICIAN Jewel Rea Admit Provider [facility] STAFF PHYSICIAN Attending Provider Discharge Potential Discharge Needs: PT Evaluation Transportation: Facility Transport Plan: Anticipate Jaye will discharge back to [facility] for STR when medically cleared by provider. Pt will transport via facility can. Pt will follow up with community providers and her discharge plan of care as instructed. PFSH All Active Problems (Updated 09/12/23 @ 22:06 by Elisa Harris DO) Sarcoid (Acute) CVA (cerebral vascular accident) (Chronic) CHF (congestive heart failure) (Chronic) History of radiation therapy (Acute) Pelvic for endometrial cancer Environmental allergies (Acute) Asthma (Chronic) Type II diabetes mellitus (Acute) Endometrial cancer, FIGO stage IIIB (Acute) That was treated with surgery and radiation in 2015 Gallstones without obstruction of gallbladder (Acute) Arterial atherosclerosis (Acute) Obesity, Class III, BMI 40-49.9 (morbid obesity) (Acute) Elevated troponin (Acute) Pancreatitis (Chronic) Stage 4 chronic kidney disease (Acute) Hypothermia (Acute) UTI (urinary tract infection) (Acute) Anemia (Chronic) Delirium (Acute) Paroxysmal A-fib (Acute) Hyperkalemia (Acute) Medical History (Updated 09/12/23 @ 22:06 by Elisa Harris DO) Dementia Surgical History (Updated 09/12/23 @ 21:52 by Elisa Harris DO) S/P GOYO (total abdominal hysterectomy) Social History Smoking/Tobacco Use Status: Unknown Smoking risk assessment performed?: Yes Housing: house SDLA(Care Management) Screening Will the Patient Participate in the Screening?: Yes Do you worry about having a steady place to live?: no In the past 12 months, have you had to go without electric, gas, oil or water in your home?: no Have you or anyone in your house had to go without enough food to eat?: no Has lack of transportation kept you from medical appointments or from doing things needed for daily living?: no Has anyone in your support network made you feel unsafe for any reason?: no
--- NOTE | 2023-09-12 10:00 | DI.US_ITS ---
APPROVED REPORT EXAM: Comprehensive 2D, Doppler, and color-flow Echocardiogram Patient Location: In-Patient Room/Bed: [address] Worker: Osiris Davenport RT (R) (CT) [facility] Rhythm: NSR Indications: Elevated troponin I levels, evaluate LV and RV function. Other Information Study Quality: Adequate Conclusion Mild concentric left ventricular hypertrophy. Ejection fraction is 60%. Wall motion is normal Normal right ventricular size and function Left atrium is normal in size. Right atrium is mildly dilated There is a small ASD/PFO with [id number] flow Aortic valve is sclerotic and probably trileaflet. There is moderate aortic stenosis. Peak gradient is 40, mean 20 mmHg. Calculated aortic valve area is 1 to 1.1 cm?? Thickened mitral leaflets with trace regurgitation Normal tricuspid valve with mild regurgitation. Estimated right ventricular systolic pressure is 29 mmHg Wall motion Left Ventricle The left ventricle is normal size. The left ventricular systolic function is normal. The left ventric ular ejection fraction is within the normal range. Mild concentric left ventricular hypertrophy. Ther e is normal LV segmental wall motion. The left ventricular diastolic function is normal. There is no ventricular septal defect visualized. LVEF is 60%. Right Ventricle The right ventricle is normal size. The right ventricular systolic function is normal. There is diana l right ventricular wall thickness. Moderator band is seen in the right ventricle. Atria The left atrium size is normal. Right atrium is mildly dilated. Small PFO/ASD with left to right flow noted. Qp/Qs : 1.07. Consider RED, if clinically indicated. Aortic Valve Aortic valve is probably trileaflet. Aortic valve is sclerotic Moderate aortic stenosis. Calculated A VA by the continuity equation is ___1.08 cm2. Highest mean aortic valve gradient is _19.6___mmHg. Pea k aortic valve gradient is _40.2___mmHg. Trace aortic regurgitation. Mitral Valve Mitral valve leaflets are thickened. No evidence of mitral valve stenosis. Trace mitral regurgitation . Tricuspid Valve The tricuspid valve is normal in structure. There is no tricuspid valve stenosis. Mild tricuspid regu rgitation. The RVSP is 29 mmHg. Pulmonic Valve The pulmonary valve is normal in structure. There is no pulmonic valvular stenosis. Trace pulmonic re gurgitation. Great Vessels The aortic root is normal in size. The pulmonary artery is normal. Ascending aorta is normal in calib er. Aortic arch is normal in caliber. IVC is normal in size and collapses >50% with inspiration. Pericardium There is no pericardial effusion. There is no pleural effusion. 2D Dimensions IVSD d PLAX 1.08 cm F: 0.6-1.0 Ao Root d 2.88 cm F: 2.7 - 3.3 LVPW d PLAX 0.98 cm F: 0.6 - 1.0 Ao Asc Diam d 2.81 cm F: 2.3 - 3.1 LVID d PLAX 4.75 cm F: 3.8 - 5.2 Prox Ao Arch 2.5 cm LVDs 2.17 cm F: 2.2 - 3.5 IVC Diam exp d SLAX 1.4 cm LV EF Teichholz 85.0 % FS 54.20 % LV EDV (Teich) 104.8 mL LV ESV (Teich) 15.7 mL M-Mode TAPSE 2.53 cm (M/F) >1.7 LA Volume LA Length A4C 6.0 cm LA Length A2C 5.1 cm LA Area A4C s 19.16 cm2 LA Area A2C s 19.01 cm2 LA Vol A4C A-L 52.11 mL LA Vol A2C A-L 60.60 mL LA Vol Biplane A-L 61.1 mL LA Vol/BSA A4C A-L LA Vol/BSA A2C A-L LA Vol/BSA BP A-L 30.5 mL/m2 LA Vol A4C MOD 50.0 mL LA Vol A2C MOD 58.0 mL LA Vol BP MOD 58.3 mL LV Diastology MV E' medial 0.086 (>0.07 m/s) MV E Vmax 1.04 (0.4-1.3 m/s) MV E/E' MED 12.04 (<14) MV A Vmax 1.05 (0.4-1.3 m/s) MV E' lateral 0.103 (>0.1 m/s) E/A Ratio 1.0 MV E/E' LAT 10.11 (<14) MV E' Average 0.095 m/s MV E/E'(average) 10.99 Aortic Valve AoV Vmax 3.17 m/s LVOT Vmax 1.14 m/s AoV Peak Grad 40.2 mmHg LVOT Peak Grad 5.2 mmHg AoV Area (Vmax) 0.99 cm2 LVOT VTI 0.339 m AoV VTI 0.864 m LVOT Mean Grad 2.7 mmHg AoV Mean Humza. 2.10 m/s LVOT SV 93.64 mL AoV Mean Grad 19.6 mmHg LVOT Diam s 1.85 cm AoV Area (VTI) 1.08 cm2 Velocity Ratio 0.36 Mitral Valve MV DT 195 (160-240 msec) Pulm Vein s 0.73 m/s Pulm Vein d 0.45 m/s Pulm Vein a 0.21 m/s Pulmonary Valve RVOT Vmax 0.77 m/s RVOT Peak Gr. 2.4 mmHg RVOT VTI 0.214 m RVOT Mean Gr. 1.3 mmHg Tricuspid Valve RA Pressure 3.00 mmHg TR Vmax 2.53 m/s TV S' 0.14 m/s TR Peak Grad 25.6 mmHg RVSP (TR) 28.7 mmHg Shunt Evaluation Pulmonic VTI (Qp) 21.0 cm Systemic VTI (Qs) 31.9 cm QP / QS 1.07 Pulmonic Diameter 2.4 cm Systemic Diameter 1.9 cm
[2023-09-12 10:11] VITALS: BP 124/60; PULSE 74
[2023-09-12 10:19] LABS: LDH 190 U/L (81-234)
[2023-09-12 10:46] LABS: D-Dimer 431 ng/mlFEU (<500)
[2023-09-12 10:56] LABS: HGB 7.9 g/dL (11.2-15.7)
[2023-09-12 12:03] LABS: Fibrinogen (Stat) (Littleton) 490 mg/dL (208-434)
[2023-09-12] MEDS: PIPERACILLIN/TAZO 2.25 GM in Normal Saline 50 ML IVPB ×3 (12:18→23:15)
[2023-09-12 13:07] VITALS: BP 102/40; PULSE 61; RESP 17; TEMP 36; O2SAT 96
[2023-09-12 14:52] VITALS: BP 107/51; PULSE 60; RESP 18; TEMP 35.8; O2SAT 98
--- NOTE | 2023-09-12 16:03 | W.PM.PROGNOT ---
Date of Service Date of service: 09/12/23 Time of Service: 16:04 Assessment and Plan Assessment and plan (1) Pancreatitis: Status: Chronic Assessment and plan: DDX: GIP/GLP-1 agonist vs gall stones, per my discussion w/ Dr. Harris, she reviewed her US and CT scan and discussed her case w/ the IDENTITY MANAGEMENT DEVELOPER and the nurse anesthetists feel that the patient is not a candidate for surgery at [facility]. I am recommending feeding the patient and if no further attacks of he pancreas and her LFT and lipase normalize then she should return home and get appt w/ a surgeon at [facility] since this is where her membership advisor (Dr. Richards) is located. Qualifiers: Chronicity: acute Pancreatitis type: unspecified pancreatitis type Acute pancreatitis complication: no infection or necrosis Qualified Code(s): K85.90 - Acute pancreatitis without necrosis or infection, unspecified (2) UTI (urinary tract infection): Status: Acute Assessment and plan: Klebsiella pneumohja, ESBL resistance but sensitive to Zosyn, currently on Zosyn which I adjusted her dose for her KENDALL Qualifiers: Urinary tract infection type: acute cystitis Hematuria presence: without hematuria Qualified Code(s): N30.00 - Acute cystitis without hematuria (3) Stage 4 chronic kidney disease: Status: Acute Assessment and plan: continue iv fluids, begin po intake, monitor renal output (4) Elevated troponin: Status: Acute Assessment and plan: likely demand ischemia. no dynamic EKG changes and no symptoms of CP or dyspnea and no RWMA on her echo. (5) Anemia: Status: Chronic Assessment and plan: likely anemia of chronic disease, did have iron studies done last admission (serum iron and TIBC) but no ferritin, reticulocyte count and no B12 or folate levels were done. I will check in the a.m. No evidence of overt bleeding but given her chronic GERD, she ought to have EGD, again will have to be done elsewhere. continue PPI for GI protection. Qualifiers: Anemia type: due to chronic kidney disease Chronic kidney disease stage: stage 4 (severe) Qualified Code(s): N18.4 - Chronic kidney disease, stage 4 (severe); D63.1 - Anemia in chronic kidney disease (6) Paroxysmal A-fib: Status: Acute Assessment and plan: continue anticoagulation and rate control. Subjective Subjective Interval history since last seen: Patient denies any CP, dyspnea or abdominal pain or nausea. She presented yesterday w/ intractable vomiting and was found to have acute pancreatitis and gall stones but no evidence for acute cholecystitis nor acute biliary tract obstruction. She is feeling better today. she had KENDALL in setting of stage 4 CKD w/ rise in her creatinine from baseline of 2.2 or 2.3 to 3.0 yesterday and now is at 2.7. She was given iv fluids yesterday and given a bolus of fluids this morning. US of her liver and GB shows cholelithiasis but no evidence for cholecystitis. She did have mild increase in troponin into the 70's which has not risen. Echo done this morning demonstrated normal LV and RV size and fxn w/ no RWMA but she has moderate A.S. and a PFO w/ left to right shunting. jShe has mild concentric LVH. MRCP was done this afternoon and she just came back from the study so results are pending. I spoke w/ Dr. Harris to consult on this case as it is unclear whether her pancreatitis is d/t gall stones vs Mounjaro (a GIP/GLP-1 agnoist). Per her sister, the patient has been on this for about one year w/ no prior pancreatitis. The sister is aware of the patients CKD and chronic anemia. Patient has had remote EGD and has chronically been on PPI for GERD. Last EGD reportedly done at [facility]. Exam Narrative Exam Narrative: Middle age white female who is alert and oriented, no acute distress Lungs: clear Heart: RRR Abdomen: obese, soft, nontender, normal bowel sounds, nondistended Extremities: no edema bullock w/ clear yellow urine in catheter and bag Objective Last Vital Signs Temp 35.8 C L 09/12/23 14:52 Pulse 60 09/12/23 14:52 Resp 18 09/12/23 14:52 BP 107/51 L 09/12/23 14:52 Pulse Ox 98 09/12/23 14:52 Laboratory Results - last 24 hr 09/11/23 09/11/23 09/11/23 15:28 15:37 18:43 WBC RBC Hgb Hct MCV MCH MCHC RDW Plt Count MPV Immature Gran % Neutrophils % Lymphocytes % Monocytes % Eosinophils % Basophils % Nucleated RBC % Absolute Neutrophils Absolute Lymphocytes Absolute Monocytes Absolute Eosinophils Absolute Basophils RBC Morphology Hypochromasia PT 13.7 H INR 1.4 H APTT 48.6 H Fibrinogen D-Dimer Sodium 135 L Potassium 4.3 Chloride 102 Carbon Dioxide 20.0 L Anion Gap 13.0 H BUN 35 H Creatinine 3.0 H Est GFR (CKD-EPI 2020) 16.73 Glucose 140 H Hemoglobin A1c Calcium 9.5 Magnesium 2.5 H Total Bilirubin 0.5 AST 30 ALT 37 Alkaline Phosphatase 183 H Lactate Dehydrogenase Troponin I 75 H* NT-Pro-B Natriuret Pep 453 H Total Protein 6.4 Albumin 2.7 L Lipase 108 H TSH 7.63 H Free T4 1.05 Urine Color Yellow Urine Clarity Clear Urine pH 7.0 Ur Specific [place] 1.025 Urine Protein >=300 H Urine Ketones Negative Urine Blood Trace-intact H Urine Nitrite Negative Urine Bilirubin Negative Urine Urobilinogen 0.2 Ur Leukocyte Esterase Trace H Urine RBC 0-2 Urine WBC 20-50 H Ur Epithelial Cells Many Urine Crystals Negative Urine Bacteria Rare Urine Casts 3-5 Hyaline Urine Mucus Trace Urine Other Rare Transitional Ur Culture Indicated? No/Sq. Contamination Urine Glucose Negative Urine Opiates Screen Negative Urine Methadone Screen Negative Ur Barbiturates Screen Negative Ur Tricyclics Screen Negative Ur Amphetamines Screen Negative U Benzodiazepines Scrn Negative Urine Cocaine Screen Negative Ur THC Screen Negative COVID-19 Source NASOPHARYNX SARS-CoV-2 (PCR) Negative Influenza Type A (PCR) Negative Influenza Type B (PCR) Negative RSV (PCR) Negative MRSA (TEM-PCR) ABO/Rh Blood Type Recheck O Negative Antibody Screen Direct Antiglob Test 09/11/23 09/11/23 09/12/23 19:39 23:39 06:08 WBC 5.89 RBC 2.55 L Hgb 7.8 L Hct 24.1 L MCV 95 MCH 30.6 MCHC 32.4 RDW 18.6 H Plt Count 89 L MPV 12.2 H Immature Gran % 0.7 Neutrophils % 81.6 Lymphocytes % 9.8 Monocytes % 6.3 Eosinophils % 1.4 Basophils % 0.2 Nucleated RBC % 0.3 Absolute Neutrophils 4.81 Absolute Lymphocytes 0.58 L Absolute Monocytes 0.37 Absolute Eosinophils 0.08 Absolute Basophils 0.01 RBC Morphology See Below Hypochromasia 1+ PT INR APTT Fibrinogen D-Dimer Sodium 135 L Potassium 5.8 H D Chloride 105 Carbon Dioxide 20.5 L Anion Gap 9.5 BUN 32 H Creatinine 2.7 H Est GFR (CKD-EPI 2020) 18.98 Glucose 62 L Hemoglobin A1c 6.2 H Calcium 8.9 Magnesium Total Bilirubin 0.4 AST 39 H ALT 29 Alkaline Phosphatase 158 H Lactate Dehydrogenase Troponin I 74 H* 77 H* NT-Pro-B Natriuret Pep Total Protein 5.9 L Albumin 2.2 L Lipase TSH Free T4 Urine Color Urine Clarity Urine pH Ur Specific [place] Urine Protein Urine Ketones Urine Blood Urine Nitrite Urine Bilirubin Urine Urobilinogen Ur Leukocyte Esterase Urine RBC Urine WBC Ur Epithelial Cells Urine Crystals Urine Bacteria Urine Casts Urine Mucus Urine Other Ur Culture Indicated? Urine Glucose Urine Opiates Screen Urine Methadone Screen Ur Barbiturates Screen Ur Tricyclics Screen Ur Amphetamines Screen U Benzodiazepines Scrn Urine Cocaine Screen Ur THC Screen COVID-19 Source SARS-CoV-2 (PCR) Influenza Type A (PCR) Influenza Type B (PCR) RSV (PCR) MRSA (TEM-PCR) Negative ABO/Rh Blood Type Recheck Cancelled Antibody Screen Direct Antiglob Test 09/12/23 09/12/23 09/12/23 06:21 09:45 10:50 WBC RBC Hgb 7.9 L Hct 25.0 L MCV MCH MCHC RDW Plt Count MPV Immature Gran % Neutrophils % Lymphocytes % Monocytes % Eosinophils % Basophils % Nucleated RBC % Absolute Neutrophils Absolute Lymphocytes Absolute Monocytes Absolute Eosinophils Absolute Basophils RBC Morphology Hypochromasia PT 12.9 H INR 1.3 H APTT 43.0 H Fibrinogen 490 H D-Dimer 431 Sodium Potassium Chloride Carbon Dioxide Anion Gap BUN Creatinine Est GFR (CKD-EPI 2020) Glucose Hemoglobin A1c Calcium Magnesium Total Bilirubin AST ALT Alkaline Phosphatase Lactate Dehydrogenase 190 Troponin I NT-Pro-B Natriuret Pep Total Protein Albumin Lipase TSH Free T4 Urine Color Urine Clarity Urine pH Ur Specific [place] Urine Protein Urine Ketones Urine Blood Urine Nitrite Urine Bilirubin Urine Urobilinogen Ur Leukocyte Esterase Urine RBC Urine WBC Ur Epithelial Cells Urine Crystals Urine Bacteria Urine Casts Urine Mucus Urine Other Ur Culture Indicated? Urine Glucose Urine Opiates Screen Urine Methadone Screen Ur Barbiturates Screen Ur Tricyclics Screen Ur Amphetamines Screen U Benzodiazepines Scrn Urine Cocaine Screen Ur THC Screen COVID-19 Source SARS-CoV-2 (PCR) Influenza Type A (PCR) Influenza Type B (PCR) RSV (PCR) MRSA (TEM-PCR) ABO/Rh O Negative Blood Type Recheck Antibody Screen NEGATIVE Direct Antiglob Test Positive Time Spent with Patient Time Spent with Patient: 35-49 minutes Time was spent: preparing to see the patient(eg.review tests), obtaining and/or reviewing separately otained hiistory, ordering medications,tests, procedures, referring, communicating with other health toddler caregiver, indepentently interpreting results, counseling the patient and care coordination
[2023-09-12] MEDS: Sodium Zirconium Cyclosilicate 10 GM PKT PO ×2 (16:10→21:54)
--- NOTE | 2023-09-12 16:33 | SCONE_ITS ---
Date of service: 09/12/23 Time of Service: 16:34 Assessment and Plan Assessment and plan (1) Elevated troponin: Status: Acute (2) Paroxysmal A-fib: Status: Acute (3) Pancreatitis: Status: Chronic Assessment and plan: This is Tonie second case of pancreatitis this month. It is my understanding that she was at [facility] recently for this problem. And she was transferred to [facility] rehab and rebounded back into the ER with complications from other medications. She started out by having chest pain. She also has a history of GERD. She did have a mild troponin release but this was thought to be due to demand from her anemia due to chronic kidney disease/chronic disease. She was found to have elevated lipase and LFTs. She had a noncontrasted CT which does not show any significant disease. -I did review her MRI. There was minimal inflammation in the head of the pancrease. There are no dilated ducts or stones in the ducts. -I would also consider that the pancreatitis could be from the Mounjaro, and possible giving her a 2wk break from this medication and see how she feels. She is high risk for anethesia/surgery. I did discuss the case with anesthesia. Given her multiple comorbidities/her weight and her chronic kidney disease she is probably best served by having the procedure done at a tertiary center. She would prefer to have the procedure done at [facility]. This is where her supervisor shuttle preparation Dr. Martinez is at. She is urgent but not emergent. She does not currently have any fever or white count. She is pain-free. And she is tolerating a diet. I will have my office make a referral in the a.m. for evaluation and consideration of surgery by the general surgical department. I discussed this with Tonie and her friend. ALEX when medically stable. This document was created with voice activated software and may contain errors. 20 mins spent in direct pt care and 30 in non face to face time Qualifiers: Acute pancreatitis complication: no infection or necrosis Chronicity: a cute Pancreatitis type: unspecified pancreatitis type Qualified Code(s): K 85.90 - Acute pancreatitis without necrosis or infection, unspecified (4) Stage 4 chronic kidney disease: Status: Acute (5) Hyperkalemia: Status: Acute (6) UTI (urinary tract infection): Status: Acute Qualifiers: Hematuria presence: without hematuria Urinary tract infection type: a cute cystitis Qualified Code(s): N30.00 - Acute cystitis without hematuria (7) Anemia: Status: Chronic Qualifiers: Anemia type: due to chronic kidney disease Chronic kidney disease stage: stage 4 (severe) Qualified Code(s): N18.4 - Chronic kidney disease, stage 4 (severe); D63.1 - Anemia in chronic kidney disease (8) Dementia: (9) Arterial atherosclerosis: Status: Acute (10) Gallstones without obstruction of gallbladder: Status: Acute (11) S/P GOYO (total abdominal hysterectomy): (12) Endometrial cancer, FIGO stage IIIB: Status: Acute (13) Type II diabetes mellitus: Status: Acute (14) Asthma: Status: Chronic (15) Environmental allergies: Status: Acute (16) History of radiation therapy: Status: Acute (17) CHF (congestive heart failure): Status: Chronic (18) CVA (cerebral vascular accident): Status: Chronic (19) Sarcoid: Status: Acute History of Present Illness Narrative: Patient is admitted with recurrent pancreatitis that is thought to be due to gallstones. Patient does have a history of alcohol abuse but she is currently not drinking per the patient. She does have a history of stage IV chronic kidney disease. This contributes to her anemia as well as her other chronic medical conditions. She is also in chronic A-fib and does take Eliquis. The anemia as well as her history of severe CHF are thought to be the cause of the troponin release demand ischemia Patient currently has no fever and no white count. Lipase is 108. I did review her noncontrasted CT scan as she cannot have IV contrast due to her chronic kidney disease. she has 2 large gallstonesin her gallbladder currently. These are too large to pass to the cystic duct. She may have had smaller stones that have passed through the duct. There is no signs of acute cholecystitis. I do not see any signs of acute pancreatitis. She may have chronic pancreatitis. Given her chronic anemia, and cardiac disease/and kidney disease, she is a poor candidate for surgery. I do not see any signs of acute cholecystitis/need for any acute surgical intervention. I did review the case with anesthesia. I think she would be best served at a tertiary institution. Review of Systems All systems reviewed & are unremarkable except as noted in HPI and below PFSH All Active Problems (Updated 09/12/23 @ 22:06 by Elisa Harris DO) Sarcoid (Acute) CVA (cerebral vascular accident) (Chronic) CHF (congestive heart failure) (Chronic) History of radiation therapy (Acute) Pelvic for endometrial cancer Environmental allergies (Acute) Asthma (Chronic) Type II diabetes mellitus (Acute) Endometrial cancer, FIGO stage IIIB (Acute) That was treated with surgery and radiation in 2014 Gallstones without obstruction of gallbladder (Acute) Arterial atherosclerosis (Acute) Obesity, Class III, BMI 40-49.9 (morbid obesity) (Acute) Elevated troponin (Acute) Pancreatitis (Chronic) Stage 4 chronic kidney disease (Acute) Hypothermia (Acute) UTI (urinary tract infection) (Acute) Anemia (Chronic) Delirium (Acute) Paroxysmal A-fib (Acute) Hyperkalemia (Acute) Medical History (Updated 09/12/23 @ 22:06 by Elisa Harris DO) Dementia Surgical History (Updated 09/12/23 @ 21:52 by Elisa Harris DO) S/P GOYO (total abdominal hysterectomy) Social History Smoking/Tobacco Use Status: Unknown Smoking risk assessment performed?: Yes Housing: house Exam GI Inspection: large pannus and obesity Palpation: soft, no hernias and No ascites Auscultation: normal bowel sounds Extrem General: no pedal edema and muscle atrophy Other: -mult areas of echymosis Results Last Vital Signs Temp 35.8 C L 09/12/23 14:52 Pulse 60 09/12/23 14:52 Resp 18 09/12/23 14:52 BP 107/51 L 09/12/23 14:52 Pulse Ox 98 09/12/23 14:52 Labs 09/12/23 10:50 09/12/23 17:00 Labs: Laboratory Results - last 24 hr 09/11/23 09/11/23 09/11/23 15:28 18:43 19:39 WBC RBC Hgb Hct MCV MCH MCHC RDW Plt Count MPV Immature Gran % Neutrophils % Lymphocytes % Monocytes % Eosinophils % Basophils % Nucleated RBC % Absolute Neutrophils Absolute Lymphocytes Absolute Monocytes Absolute Eosinophils Absolute Basophils RBC Morphology Hypochromasia PT INR APTT Fibrinogen D-Dimer Sodium Potassium Chloride Carbon Dioxide Anion Gap BUN Creatinine Est GFR (CKD-EPI 2021) Glucose Hemoglobin A1c Calcium Total Bilirubin AST ALT Alkaline Phosphatase Lactate Dehydrogenase Troponin I 74 H* Total Protein Albumin Urine Color Yellow Urine Clarity Clear Urine pH 7.0 Ur Specific [place] 1.025 Urine Protein >=300 H Urine Ketones Negative Urine Blood Trace-intact H Urine Nitrite Negative Urine Bilirubin Negative Urine Urobilinogen 0.2 Ur Leukocyte Esterase Trace H Urine RBC 0-2 Urine WBC 20-50 H Ur Epithelial Cells Many Urine Crystals Negative Urine Bacteria Rare Urine Casts 3-5 Hyaline Urine Mucus Trace Urine Other Rare Transitional Ur Culture Indicated? No/Sq. Contamination Urine Glucose Negative Urine Opiates Screen Negative Urine Methadone Screen Negative Ur Barbiturates Screen Negative Ur Tricyclics Screen Negative Ur Amphetamines Screen Negative U Benzodiazepines Scrn Negative Urine Cocaine Screen Negative Ur THC Screen Negative MRSA (TEM-PCR) ABO/Rh Blood Type Recheck O Negative Antibody Screen Direct Antiglob Test 09/11/23 09/12/23 09/12/23 23:39 06:08 06:21 WBC 5.89 RBC 2.55 L Hgb 7.8 L Hct 24.1 L MCV 95 MCH 30.6 MCHC 32.4 RDW 18.6 H Plt Count 89 L MPV 12.2 H Immature Gran % 0.7 Neutrophils % 81.6 Lymphocytes % 9.8 Monocytes % 6.3 Eosinophils % 1.4 Basophils % 0.2 Nucleated RBC % 0.3 Absolute Neutrophils 4.81 Absolute Lymphocytes 0.58 L Absolute Monocytes 0.37 Absolute Eosinophils 0.08 Absolute Basophils 0.01 RBC Morphology See Below Hypochromasia 1+ PT 12.9 H INR 1.3 H APTT Fibrinogen D-Dimer Sodium 135 L Potassium 5.8 H D Chloride 105 Carbon Dioxide 20.5 L Anion Gap 9.5 BUN 32 H Creatinine 2.7 H Est GFR (CKD-EPI 2020) 18.98 Glucose 62 L Hemoglobin A1c 6.2 H Calcium 8.9 Total Bilirubin 0.4 AST 39 H ALT 29 Alkaline Phosphatase 158 H Lactate Dehydrogenase Troponin I 77 H* Total Protein 5.9 L Albumin 2.2 L Urine Color Urine Clarity Urine pH Ur Specific [place] Urine Protein Urine Ketones Urine Blood Urine Nitrite Urine Bilirubin Urine Urobilinogen Ur Leukocyte Esterase Urine RBC Urine WBC Ur Epithelial Cells Urine Crystals Urine Bacteria Urine Casts Urine Mucus Urine Other Ur Culture Indicated? Urine Glucose Urine Opiates Screen Urine Methadone Screen Ur Barbiturates Screen Ur Tricyclics Screen Ur Amphetamines Screen U Benzodiazepines Scrn Urine Cocaine Screen Ur THC Screen MRSA (TEM-PCR) Negative ABO/Rh Blood Type Recheck Cancelled Antibody Screen Direct Antiglob Test 09/12/23 09/12/23 09:45 10:50 WBC RBC Hgb 7.9 L Hct 25.0 L MCV MCH MCHC RDW Plt Count MPV Immature Gran % Neutrophils % Lymphocytes % Monocytes % Eosinophils % Basophils % Nucleated RBC % Absolute Neutrophils Absolute Lymphocytes Absolute Monocytes Absolute Eosinophils Absolute Basophils RBC Morphology Hypochromasia PT INR APTT 43.0 H Fibrinogen 490 H D-Dimer 431 Sodium Potassium Chloride Carbon Dioxide Anion Gap BUN Creatinine Est GFR (CKD-EPI 2020) Glucose Hemoglobin A1c Calcium Total Bilirubin AST ALT Alkaline Phosphatase Lactate Dehydrogenase 190 Troponin I Total Protein Albumin Urine Color Urine Clarity Urine pH Ur Specific [place] Urine Protein Urine Ketones Urine Blood Urine Nitrite Urine Bilirubin Urine Urobilinogen Ur Leukocyte Esterase Urine RBC Urine WBC Ur Epithelial Cells Urine Crystals Urine Bacteria Urine Casts Urine Mucus Urine Other Ur Culture Indicated? Urine Glucose Urine Opiates Screen Urine Methadone Screen Ur Barbiturates Screen Ur Tricyclics Screen Ur Amphetamines Screen U Benzodiazepines Scrn Urine Cocaine Screen Ur THC Screen MRSA (TEM-PCR) ABO/Rh O Negative Blood Type Recheck Antibody Screen NEGATIVE Direct Antiglob Test Positive
--- NOTE | 2023-09-12 16:41 | PHA.REVIEW2 ---
Pharmacy Admission Review Admission Clinical Review Admission Pharmacy Review: Elevated troponin (Acute) Stage 4 chronic kidney disease (Acute) Hypothermia (Acute) UTI (urinary tract infection) (Acute) Paroxysmal A-fib (Acute) Hyperkalemia (Acute) prednisone Adverse Reaction (Severe, Verified 09/11/23 22:48) Psychosis azithromycin Adverse Reaction (Intermediate, Unverified 09/11/23 22:48) Unknown latex Adverse Reaction (Intermediate, Unverified 09/11/23 22:48) Skin Rash semaglutide [From Ozempic] Adverse Reaction (Intermediate, Unverified 09/11/23 22:48) Unknown metformin Adverse Reaction (Mild, Unverified 09/11/23 22:48) Unknown Resuscitation Status Full Code Height 5 ft Weight 106.912 kg Pharmacy Admission Review Renal Dosing Renal Dosing: BUN 32 mg/dL (7-18) H 09/12/23 06:08 Creatinine 2.7 mg/dL (0.55-1.02) H 09/12/23 06:08 Medications needing adjustments: Intervened (CrCl 22.98 mL/min) List of meds needing interventions: Decreased famotidine from 20mg daily to 10mg q48h Anticoagulation Anticoagulation: Hgb 7.9 g/dL (11.2-15.7) L 09/12/23 10:50 Hct 25.0 % (36.0-46.0) L 09/12/23 10:50 Plt Count 89 10^3/uL (130-400) L 09/12/23 06:08 INR 1.3 (0.9-1.1) H 09/12/23 06:21 Creatinine 2.7 mg/dL (0.55-1.02) H 09/12/23 06:08 DVT Prophylaxis: Reviewed (Order currently on hold) Medications: Apixaban (5mg PO BID) Relevant Labs Relevant Labs: Sodium 135 mmol/L (136-145) L 09/12/23 06:08 Potassium 5.8 mmol/L (3.5-5.1) H D 09/12/23 06:08 Chloride 105 mmol/L (98-107) 09/12/23 06:08 Magnesium 2.5 mg/dL (1.8-2.4) H 09/11/23 15:28 Electrolytes, C-Reactive P, ESR: Reviewed (Na 135, K 5.8 - received Lokeloh, repeat labs pending, INR 1.3, Hgb decreased from 8.7 to 7.9) DM Control DM Control: Glucose 62 mg/dL (74-106) L 09/12/23 06:08 Hemoglobin A1c 6.2 % (<5.7) H 09/12/23 06:08 Finger Stick Blood Glucose 81 1214 Finger Stick Blood Glucose 81 1140 Finger Stick Blood Glucose 81 1140 Finger Stick Blood Glucose 102 0953 Finger Stick Blood Glucose 102 0953 DM Control: Reviewed Insulin Dosing, Diabetic Medication: Has order for SS insulin Cardiac Review Cardiac Review: Troponin I 77 ng/L (< or =60) H* 09/12/23 06:08 NT-Pro-B Natriuret Pep 453 pg/mL (<300) H 09/11/23 15:28 Blood Pressure 107/51 1452 Blood Pressure 102/40 1307 Blood Pressure 124/60 1011 Blood Pressure 96/64 0751 BP, HR, EF%: Reviewed (BP 107/51, HR WNL, troponin slightly increased from 74) QTc Review QTc: Reviewed (478 from 09/11/23) IV to PO Switch IV Medications: Reviewed (Zosyn, pantoprazole, ondansetron) Home Meds Home Med List reviewed: Reviewed Relevent Home Meds Not ordered & why?: acetaminophen (PRN), albuterol/budesonide (no fill history), vitamin D3, Flonase (PRN), furosemide (KENDALL), Miralax (PRN) and Mounjaro (weekly) Current Meds Current Medication Order Review: Intervened Comments: Added IV admission order set Pharmacy Antibiotic Review Relevant Labs: Relevant Labs 09/12/23 09:45 Lactate Dehydrogenase 190 WBC 5.89 10^3/uL (4.4-10.8) 09/12/23 06:08 Temperature 35.8 C Temperature 36.0 C Temperature 35.8 C Pharmacy Antibiotic Activity: C/S review and Renal function adjustment Comments: Patient is on Zosyn (decreased today to 2.25g q6h due to kidney function), day 1 for UTI. Blood cultures are pending
[2023-09-12] MEDS: Normal Saline 1,000 ML 100 ML IV (17:07)
[2023-09-12 17:32] LABS: Anion Gap 10.1 mmol/L (3-11); BUN 31 mg/dL (7-18); CO2 21.9 mmol/L (21.0-32.0); CREATININE 2.8 mg/dL (0.55-1.02); Calcium 8.9 mg/dL (8.5-10.1); Chloride 104 mmol/L (98-107); Estimated GFR 18.17 (mL/min/1.73m2); Glucose 114 mg/dL (74-106); Potassium 4.5 mmol/L (3.5-5.1); Sodium 136 mmol/L (136-145)
[2023-09-12 18:36] VITALS: BP 111/54; PULSE 62; RESP 18; TEMP 36.6; O2SAT 95
[2023-09-12] MEDS: Normal Saline Flush 10 ML SYR IVP ×2 (21:54→23:15)
[2023-09-12 23:18] VITALS: BP 108/50; PULSE 58; RESP 18; TEMP 35.8; O2SAT 96
[2023-09-13 03:12] VITALS: BP 114/58; PULSE 47; RESP 19; TEMP 36; O2SAT 97
[2023-09-13] MEDS: PIPERACILLIN/TAZO 2.25 GM in Normal Saline 50 ML IVPB ×2 (05:03→11:49)
[2023-09-13] MEDS: Sodium Zirconium Cyclosilicate 10 GM PKT PO (05:29)
[2023-09-13 07:24] LABS: Reticulocyte 2.9 % (0.5-2.4)
[2023-09-13 07:26] LABS: Abs Immature Grans 0.03 10^3/uL (0.0-0.06); Absolute Basophil Count 0.01 10^3/uL (0.0-0.2); Absolute Eosinophil Count 0.14 10^3/uL (0.0-0.7); Absolute Lymphocyte Count 0.44 10^3/uL (1.2-3.4); Absolute Monocyte Count 0.42 10^3/uL (0.1-0.8); Basophils % 0.1 %; Eosinophils % 1.6 %; HCT 24.9 % (36.0-46.0); HGB 7.9 g/dL (11.2-15.7); Immature Grans % 0.3 %; MCH 30.7 pg (27.0-33.0); MCHC 31.7 % (32.0-36.0); MCV 97 fL (80-95); MPV 12.4 fL (8.0-11.0); Monocytes % 4.8 %; Neutrophils % 88.2 %; Nucleated RBC 0.3 % (0.0-0.3); RBC 2.57 10^6/uL (3.93-5.22); RDW 19.1 % (11.7-14.6); RDW-SD 68.1 fL; WBC 8.74 10^3/uL (4.4-10.8)
[2023-09-13 07:40] VITALS: BP 104/50; PULSE 54; RESP 17; TEMP 35.8; O2SAT 97
[2023-09-13 07:57] LABS: Iron 63 ug/dL (50-170); Platelet Count 85 10^3/uL (130-400); Total Iron Binding Capacity 266 ug/dL (250-450); Transferrin Sat 24 % (15-50)
[2023-09-13 07:58] LABS: Diff Comment Diff Reviewed; RBC Morphology Normal
[2023-09-13 08:10] LABS: ALT 25 U/L (14-59); AST 25 U/L (15-37); Albumin 2.2 g/dL (3.4-5.0); Alkaline Phosphatase 153 U/L (46-116); BUN 29 mg/dL (7-18); Bilirubin, Total 0.5 mg/dL (0.2-1.0); CREATININE 2.5 mg/dL (0.55-1.02); Calcium 8.8 mg/dL (8.5-10.1); Chloride 106 mmol/L (98-107); Estimated GFR 20.82 (mL/min/1.73m2); Ferritin 119 ng/mL (8-252); Glucose 68 mg/dL (74-106); Potassium 3.5 mmol/L (3.5-5.1); Sodium 139 mmol/L (136-145); Total Protein 5.6 g/dL (6.4-8.2)
[2023-09-13 08:16] LABS: Folate 6.8 ng/mL (8.6-20.0); Vitamin B12 956 pg/mL (193-986)
[2023-09-13 08:19] LABS: Amylase 24 U/L (25-115); Lipase 62 U/L (16-77)
[2023-09-13] MEDS: Lactobacillus Acidophilus CAP 1 CAP PO (08:41)
[2023-09-13] MEDS: Rosuvastatin 10 MG TAB 20 MG PO (08:41)
[2023-09-13] MEDS: Normal Saline Flush 10 ML SYR IVP ×2 (09:19→11:50)
[2023-09-13] MEDS: Folic Acid 1 MG TAB PO (09:19)
[2023-09-13] MEDS: Pantoprazole 40 MG VIAL IVP (09:19)
--- NOTE | 2023-09-13 10:58 | PDOC.CMPRO ---
Date of service: 09/13/23 Time of Service: 10:58 Care Management Progress Note Progress Note Text Progress Note Text: S/O: A: SDOH(Care Management) Screening Will the Patient Participate in the Screening?: Yes Do you worry about having a steady place to live?: no In the past 12 months, have you had to go without electric, gas, oil or water in your home?: no Have you or anyone in your house had to go without enough food to eat?: no Has lack of transportation kept you from medical appointments or from doing things needed for daily living?: no Has anyone in your support network made you feel unsafe for any reason?: no
[2023-09-13 11:14] VITALS: BP 118/46; PULSE 53; RESP 16; TEMP 35.3; O2SAT 99
[2023-09-13 11:28] VITALS: BP 108/51; PULSE 51; RESP 17; TEMP 35.6; O2SAT 100
[2023-09-13] MEDS: Fosfomycin Tromethamine 3 GM PACKET PO (13:27)
--- NOTE | 2023-09-13 13:36 | W.PM.DS.N ---
Date of service: 09/13/23 Time of Service: 13:36 DS: Diagnosis Discharge Diagnosis (1) Pancreatitis: Status: Chronic Asessment and Plan: Gallstone pancreatitis versus medication induced from Mounjaro. Recommendation is to discontinue Mounjaro and avoid all GIP/GLP-1 agonist or any GLP-1 agonist. Recommendation was also made for the patient to seek a general surgery evaluation at a tertiary care center such as the [facility]. Because of her transient troponin elevation she may need an ischemic workup prior to her general surgery however during this hospitalization her troponins were only minimally elevated and not associated with ischemic pain or dyspnea and her echocardiogram showed normal LV systolic function with mild LVH. She does have some valvular heart disease including aortic stenosis and has a PFO. Therefore would be prudent for her to see cardiology prior to any operation. (2) UTI (urinary tract infection): Status: Acute Asessment and Plan: Patient treated with Zosyn x 3 days for an ESBL Klebsiella pneumoniae. Patient will continue on fosfomycin 3 g orally every 3 days for 2 more doses. She got 1 dose on the day of discharge. Repeat urinalysis to be done in 1 week. (3) Elevated troponin: Status: Acute Asessment and Plan: As noted above transient elevation of her troponin up to 77 not associated with ischemic EKG changes and no regional wall motion abnormality on her echocardiogram. Further ischemic workup can be pursued as an outpatient. (4) Paroxysmal A-fib: Status: Acute Asessment and Plan: Patient was in sinus rhythm during hospitalization. She remains on apixaban for stroke prevention. She has a history of a previous stroke. (5) Stage 4 chronic kidney disease: Status: Acute Asessment and Plan: Patient treated for KENDALL superimposed on her CKD. Patient was given IV fluids also received Lokelma for hyperkalemia. Please repeat her BMP within a week. (6) Hyperkalemia: Status: Acute (7) Anemia: Status: Chronic Asessment and Plan: Patient has a stable anemia of chronic kidney disease but subsequently found to have folate deficiency. Patient begun on folic acid 1 mg p.o. daily. Please repeat her CBC in a week. Recommend repeat folate level in 6 to 8 weeks. (8) Gallstones without obstruction of gallbladder: Status: Acute Asessment and Plan: General surgical consultation was obtained with Dr. Elisa Harris and she discussed case with [facility] anesthesia team. Because of the patient's multiple comorbidities felt to be too complex for surgery here at [facility]. As the patient had no evidence of acute cholecystitis there is no need for urgent surgery but is recommend that she see a general surgeon at tertiary care center where she can be evaluated by the rest of her medical team including her vp human resources and cardiology. Patient and her sister opting for outpatient referral to [facility]. (9) Type II diabetes mellitus: Status: Acute Asessment and Plan: Recommend treatment with basal bolus insulin. Avoid use of GLP-1 agonist. Discharge Plan Disposition Patient Disposition: Alf Facility(SNF) Condition: Improving Discharge Details Reason For Visit: UTI, liver disease Admit Date/Time: 09/11/23 21:59 Admit Provider: Jewel Rea Attending Provider: Jewel Rea Primary Care Provider: Elmer Perdomo Hospital Course Hospital Course: 67-year-old female resident of [facility] with history of dementia, CVA, CKD 4, diabetes mellitus, paroxysmal atrial fibrillation chronically anticoagulated with apixaban who was admitted on 09/11/2023 with acute nausea and vomiting. This was not associated with any coffee-ground emesis or hematemesis.Workup revealed her to have acute pancreatitis with a lipase of 108, CT of the abdomen pelvis showed mild inflammation of the pancreatic head but no pancreatic ductal dilatation. She was found to have cholelithiasis but no evidence of acute cholecystitis. CT of her head was performed showed no acute intracranial process. Chest x-ray also showed no acute abnormality. Subsequent evaluation with the MRI of her abdomen performed on 09/12/2023 showed 2 adjacent gallstones but no evidence of acute gallbladder inflammation or biliary ductal dilatation and no common duct stones. There is mild inflammation of the inferior head of the pancreas. Abdominal ultrasound likewise showed cholelithiasis without evidence for acute cholecystitis. General surgical consultation was obtained with Dr. Elisa Harris who reviewed the CT scan and ultrasound and discussed the patient's case with the anesthesia department. Because the patient's stage IV CKD as well as her other comorbidities they felt she was too high risk for surgery here at [facility]. Fortunately for the patient her pancreatitis improved she was advanced on her diet from clear liquids to full liquids and subsequently to solid foods. She was placed on a low-fat diet and tolerated this quite well. During her workup she was found to have a transient rise in her troponin levels that peaked at 77. However she had no acute ischemic changes on her EKG. Echocardiogram was performed and showed mild concentric LVH with normal LVEF of 60% no wall motion abnormalities. Normal right ventricular size and function. She has a small ASD/PFO with [id number] flow and she has moderate aortic stenosis. All of these results were discussed with her sister Ursula.. Labs were remarkable for KENDALL with elevated BUN of 35 creatinine 3.0 which after IV fluid hydration came down to 29 and 2.5. This is about her baseline level of renal function. Prior to admission her creatinine was around 2.1-2.2. She was found to be chronically anemic with a hemoglobin around 8 g and this remained stable throughout her hospital course. Platelet count was found to be low at around 85-89,000. On the day of discharge she was eating solids quite well on a low-fat diet not having any abdominal pain. On the day of discharge part of her anemia workup included B12 level and folate level. She was found to be mildly folate deficient at 6.8 but a normal B12 of 956. She will be discharged on folic acid supplement. During her hospital course with her acute renal insufficiency she had elevated potassium up to 5.8. This was felt to be exacerbated by her dehydration and worsening azotemia as well as recent treatment with Bactrim. She was found to have a urinary tract infection with Klebsiella pneumoniae that was an ESBL organism although it was sensitive to Zosyn for which she was treated for 3 days with Zosyn and subsequently discharged on course of fosfomycin. She was given 3 g on the day of discharge and told to take 2 more doses 3 days apart with orders for repeat urinalysis in a week. Furthermore she should have a follow-up CBC and BMP in the next week. Case management was working on arranging an outpatient general surgical consultation at the [facility] per patient and her sisters request. It is recommended she have an elective cholecystectomy prior to an acute repeat pancreatitis attack. Furthermore it is recommended that she discontinue her Mounjaro which is a GIP/GLP-1 agonist with known side effects of pancreatitis. Home Meds and New Rx's Prescriptions: New fosfomycin tromethamine 3 gram packet 3 g PO Q3D 6 Days Qty: 1 0RF Rx Instructions: take fosfomycin 3 gm po every 3 days x 2 doses for Klebsiella pneumonia UTI folic acid 1 mg tablet 1 mg PO DAILY Qty: 30 0RF Continued acetaminophen 325 mg capsule 650 mg PO Q4H PRN albuterol-budesonide 90-80 mcg/actuation HFA aerosol inhaler 2 inh inhalation BID PRN Eliquis 5 mg tablet 5 mg PO BID famotidine [Acid Controller] 20 mg tablet 20 mg PO DAILY fluticasone propionate [Allergy Relief (fluticasone)] 50 mcg/actuation spray,suspension 1 spray intranasal BID PRN Rx Instructions: administer into each nostril insulin lispro [Humalog KwikPen Insulin] 100 unit/mL insulin pen 1 sliding scale dose subcut USEASDIRECTD melatonin 5 mg capsule 7 mg PO .daily hs polyethylene glycol 3350 [ClearLax] 17 gram powder in packet 17 g PO ONCE PRN Rx Instructions: give if no bowel movement in past 72 hours cholecalciferol (vitamin D3) 50 mcg (2,000 unit) tablet 2,000 unit PO DAILY bisacodyl [Dulcolax (bisacodyl)] 10 mg suppository 10 mg [place] DAILY PRN Saccharomyces boulardii [Daily Probiotic (S. boulardii)] 250 mg capsule 250 mg PO BID magnesium hydroxide [Blackman Milk of Magnesia] 400 mg/5 mL suspension 5 ml PO DAILY PRN nystatin 100,000 unit/gram cream 1 applic topical DAILY ondansetron 4 mg tablet,disintegrating 4 mg PO Q6H PRN pantoprazole [Protonix] [address] for susp in packet 40 mg PO DAILY rosuvastatin [Crestor] 10 mg tablet 10 mg PO DAILY Discontinued furosemide 20 mg tablet 20 mg PO DAILY cefpodoxime 100 mg tablet 100 mg PO BID Rx Instructions: must administer with a meal/food sulfamethoxazole-trimethoprim [Bactrim DS] 800-160 mg tablet 1 tab PO DAILY ciprofloxacin HCl [Cipro] 500 mg tablet 500 mg PO BID Mounjaro 5 mg/0.5 mL pen injector 7.5 mg subcut QWEEK Discharge Instructions Instructions: Pancreatitis (DC), Urinary Tract Infection in Women (DC) Additional Instructions: You were treated for acute pancreatitis and were found to have gall stones but did not have evidence for acute cholecystitis. However, your pancreatitis may have been caused either by your use of Mounjaro (a known side effect w/ the use of GIP/GLP-1 agonist medications) or you may have had a gallstone pancreatitis caused by passage of a gall stone through your common bile duct and inflaming the head of the pancreas. However, your MRCP and your ultrasound and CT scan of your abdomen did not show any acute obstruction of your common bile duct and there was no inflammation of the gallbladder wall even though you have residual gallstones in the gall bladder. It is advised that you stop the Mounjaro. You were referred to Dr. Harris, general surgeon at [facility] who saw you while you were hospitalized. She discussed your case w/ our anesthesia team and they feel that your medical problems are too complex for you to have gall bladder surgery at [facility]. It is recommended that you see a general surgeon at [facility] where your vp human resources practices so he/she can coordinate your care w/ the surgeon. While here you were found to have a urinary tract infection w/ klebsiella which was highly resisttant to most antibiotics but you were treated w/ an extended penicillin called Zosyn (piperacillin/tazobactam) and also given a dose of fosfomycin prior to discharge. YOu should receive two more doses of fosfomycin one dose every 3 days for two more doses, then your urine should be rechecked. You were also noted to have acute worsening of your chronic kidney disease which did improve w/ iv fluid hydration. We believe that your renal function worsened due to combination of the acute infection, the pancreatitis and also d/t dehydration and use of trimethoprim/sulfamethoxazole, an antibiotics given to you at the [facility]. Please stop any antibiotics except for the fosfomycin. Because of your acute renal insufficiency, your potassium became elevated and necessitated treatment w/ a potassium lowering drug, Lokelma. YOur potassium on discharge was normal at 3.5. Please have the [facility] recheck your labs within a week. Referrals: [facility] [Outside] (a referral will be made for surgical consultation at [facility], you should receive a call within a week from the general surgery department; if not please call [phone] and ask the referral center for general surgery referral) Activity:: Activity as Tolerated Equipment/Supplies:: No Equipment Needed Diet:: renal/diabetiic Discharge Orders Other Ambulatory Orders: Urinalysis (Routine) Timeframe: 1 Week Facility: [facility] - Location: Laboratory Outpatient - [facility] Ordered By: Ford Blakely Basic Metabolic Panel (Routine) Timeframe: 1 Week Facility: [facility] - Location: Laboratory Outpatient - [facility] Ordered By: Ford Blakely Complete Blood Count w/Diff (Routine) Timeframe: 1 Week Facility: [facility] - Location: Laboratory Outpatient - [facility] Ordered By: Ford Blakely DS: Summary Time Spent with Patient providing and/or coordinating discharge services: Greater than 30 minutes Specific discharge activities: Interview/exam of patient; review of discharge instructions, completion of prescriptions/discharge instructions; discussion w/ nursing and CM; documentation of hospital visit Status at Discharge Functional status at discharge: uses cane/walker Overall status at discharge: patient is progressing back to baseline Mental Status: mental status grossly normal Speech and Movement: speech and movement normal Mood: congruent mood Affect: normal affect Quality:[facility] Health Related Social Needs: No Data to Display Referrals and interventions: currently at [facility] and rehab Exam Narrative Exam Narrative: Jaye is sitting up in her chair she is alert oriented no acute distress denies any abdominal pain. Abdomen soft nontender nondistended normal bowel sounds no guarding or rebound tenderness. Valverde catheter draining clear yellow urine Psych Mental Status: mental status grossly normal Speech and Movement: speech and movement normal Mood: congruent mood Affect: normal affect DS: Data Vitals/I&O Vitals and I&O: Vital Signs Temperature 35.6 C L 09/13/23 11:28 Temperature Source Tympanic 09/13/23 11:28 Pulse 51 L 09/13/23 11:28 Pulse Rhythm Regular 09/13/23 08:54 Pulse 63 09/11/23 23:31 Respiratory Rate 17 09/13/23 11:28 Respiratory Effort Normal, Non-Labored 09/13/23 08:54 Respiratory Depth Normal 09/13/23 08:54 Respiratory Pattern Normal 09/13/23 08:54 Blood Pressure 108/51 L 09/13/23 11:28 Blood Pressure Mean 62 09/11/23 23:31 Blood Pressure Position Supine 09/11/23 15:50 Pulse Oximetry 100 09/13/23 11:28 Oxygen Delivery Method Room Air 09/13/23 11:28 Oxygen Flow Rate 0 09/13/23 11:28 Pain Level 0 09/13/23 11:28 Comment oral 09/11/23 18:16 Intake & Output 09/12/23 09/13/23 09/13/23 23:59 11:59 23:59 Intake Total 440 / 1140 1050 / 1050 Output Total 400 / 400 300 / 300 Balance 40 / 740 750 / 750 Intake: IV 200 / 750 1050 / 1050 Oral 240 / 390 Output: Urine 400 / 400 300 / 300 Other: Urine Color Yellow Yellow Urine Appearance Clear Clear Urine Odor Normal Comment remove catheter per Dr. Blakely Stool Occult Blood Negative Stool Size Moderate Stool Characteristics Formed Hard Data Completed and Pending Labs on day of discharge: Labs from last 24 hours 09/13/23 09/12/23 09/12/23 06:40 17:00 11:20 WBC 8.74 RBC 2.57 L Hgb 7.9 L Hct 24.9 L MCV 97 H MCH 30.7 MCHC 31.7 L RDW 19.1 H Plt Count 85 L MPV 12.4 H Reticulocyte % (Auto) 2.9 H Immature Gran % 0.3 Neutrophils % 88.2 Lymphocytes % 5.0 Monocytes % 4.8 Eosinophils % 1.6 Basophils % 0.1 Nucleated RBC % 0.3 Absolute Neutrophils 7.70 H Absolute Lymphocytes 0.44 L Absolute Monocytes 0.42 Absolute Eosinophils 0.14 Absolute Basophils 0.01 RBC Morphology Normal Sodium 139 136 Potassium 3.5 D 4.5 D Chloride 106 104 Carbon Dioxide 23.0 21.9 Anion Gap 10.0 10.1 BUN 29 H 31 H Creatinine 2.5 H 2.8 H Est GFR (CKD-EPI 2020) 20.82 18.17 Glucose 68 L 114 H Calcium 8.8 8.9 Iron 63 TIBC 266 Transferrin Pending Transferrin % Sat 24 Ferritin 119 Total Bilirubin 0.5 AST 25 ALT 25 Alkaline Phosphatase 153 H Total Protein 5.6 L Albumin 2.2 L Amylase 24 L Lipase 62 Vitamin B12 956 Folate 6.8 L Blood Type (Referred) Blood Group (off-site) Antibody Screen Refer Antibody Identification Cancelled Direct Antiglob Test NEGATIVE 09/12/23 09/12/23 11:20 09:45 WBC RBC Hgb Hct MCV MCH MCHC RDW Plt Count MPV Reticulocyte % (Auto) Immature Gran % Neutrophils % Lymphocytes % Monocytes % Eosinophils % Basophils % Nucleated RBC % Absolute Neutrophils Absolute Lymphocytes Absolute Monocytes Absolute Eosinophils Absolute Basophils RBC Morphology Sodium Potassium Chloride Carbon Dioxide Anion Gap BUN Creatinine Est GFR (CKD-EPI 2020) Glucose Calcium Iron TIBC Transferrin Transferrin % Sat Ferritin Total Bilirubin AST ALT Alkaline Phosphatase Total Protein Albumin Amylase Lipase Vitamin B12 Folate Blood Type (Referred) NEGATIVE Blood Group (off-site) O Antibody Screen Refer Cancelled Antibody Identification Cancelled Direct Antiglob Test Positive 09/13/23 11:23 Stool Stool Occult Blood (MONIKA) - Pending Preliminary micro results at discharge 09/13/23 11:23 Stool Occult Blood (MONIKA) - Pending Stool 09/11/23 15:30 Blood Culture - Preliminary Blood NO GROWTH 24 HOURS 09/11/23 15:28 Blood Culture - Preliminary Blood NO GROWTH 24 HOURS PFSH All Active Problems (Updated 09/13/23 @ 13:39 by Ford Blakely MD) Thrombocytopenia (Chronic) Sarcoid (Acute) CVA (cerebral vascular accident) (Chronic) CHF (congestive heart failure) (Chronic) History of radiation therapy (Acute) Pelvic for endometrial cancer Environmental allergies (Chronic) Asthma (Chronic) Type II diabetes mellitus (Acute) Endometrial cancer, FIGO stage IIIB (Acute) That was treated with surgery and radiation in 2014 Gallstones without obstruction of gallbladder (Acute) Arterial atherosclerosis (Acute) Obesity, Class III, BMI 40-49.9 (morbid obesity) (Acute) Elevated troponin (Acute) Pancreatitis (Chronic) Stage 4 chronic kidney disease (Acute) Hypothermia (Acute) UTI (urinary tract infection) (Acute) Anemia (Chronic) Delirium (Acute) Paroxysmal A-fib (Acute) Hyperkalemia (Acute) Medical History Dementia Surgical History S/P GOYO (total abdominal hysterectomy) Social History Smoking/Tobacco Use Status: Unknown Smoking risk assessment performed?: Yes Housing: house Time Spent with Patient Time Spent with Patient: 45-69 minutes Time was spent: preparing to see the patient(eg.review tests), ordering medications,tests, procedures, referring, communicating with other health date night caregiver, indepentently interpreting results, counseling the patient (And patient's sister, Ursula) and care coordination
--- NOTE | 2023-09-13 13:59 | PDOC.CMDIS ---
Date of service: 09/13/23 Time of Service: 13:59 LACE Index Scoring Tool Questions: Length of Stay (in days): 2 Was the patient admitted via the E.D.?: Yes Comorbidities: Cerebrovascular Disease, Diabetes w/o Complication and Congestive Heart Failure E.D. Visits: 2 Answers: Total Score: 12 Risk of Readmission: High Risk Care Management Discharge Plan Reason for Hospitalization: UTI, Liver Disease Discharge Plan: Discharge back to [facility] for STR is coordinated. Pt will be driven via facility w/c van. Pt will follow up with community providers and her discharge plan of care as instructed. A referral to [facility] Gen. Surgery was initiated by Dr. Blakely and sent to [facility] prior to pts discharge discharge. Patient/Family Education Needs: Review discharge instructions, limitations, medications and plan to follow up with community providers. Discuss ask me three. Services Needed at Discharge: Jail Facility ([facility]) and Transportation (w/c facility van) [facility] Health Related Social Needs: No Data to Display Referrals and interventions: currently at [facility] and rehab
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
[2023-09-14 09:39] LABS: Transferrin 219 mg/dL (201-352)
== END 2023-09-13 15:15 | disposition skilled nursing facility (03) | DRG 689 ==
LOC: ER 21:36 → MS 23:52
PROVIDERS: Internal Medicine; Surgery; Admitting Provider Family Medicine; Emergency Provider Emergency Medicine; PCP Family Medicine; Visit Provider Family Medicine
DX: N30.00 Acute cystitis without hematuria (principal); K85.30 Drug induced acute pancreatitis without necrosis or infection; I24.89 Other forms of acute ischemic heart disease; N18.4 Chronic kidney disease, stage 4 (severe); Z68.42 Body mass index [BMI] 45.0-49.9, adult; Z16.12 Extended spectrum beta lactamase (ESBL) resistance; N17.9 Acute kidney failure, unspecified; Q21.12 Patent foramen ovale; I48.0 Paroxysmal atrial fibrillation; D63.1 Anemia in chronic kidney disease; E87.5 Hyperkalemia; E11.22 Type 2 diabetes mellitus with diabetic chronic kidney disease; J45.909 Unspecified asthma, uncomplicated; K21.9 Gastro-esophageal reflux disease without esophagitis; F03.90 Unspecified dementia, unspecified severity, without behavioral disturbance, psychotic disturbance, mood disturbance, and anxiety; F10.11 Alcohol abuse, in remission; Z79.01 Long term (current) use of anticoagulants; I50.9 Heart failure, unspecified; Z85.42 Personal history of malignant neoplasm of other parts of uterus; Z92.3 Personal history of irradiation; E66.01 Morbid (severe) obesity due to excess calories; Z79.4 Long term (current) use of insulin; Z79.85 Long-term (current) use of injectable non-insulin antidiabetic drugs; K80.20 Calculus of gallbladder without cholecystitis without obstruction; B96.1 Klebsiella pneumoniae [K. pneumoniae] as the cause of diseases classified elsewhere; I35.0 Nonrheumatic aortic (valve) stenosis; T50.995A Adverse effect of other drugs, medicaments and biological substances, initial encounter; E53.8 Deficiency of other specified B group vitamins; Z86.73 Personal history of transient ischemic attack (TIA), and cerebral infarction without residual deficits
CPT/HCPCS: 00123; 36410; 36415; 36416; 80048; 80053; 80307; 82962; 83690; 85384; 86850; 86900; 86901; 87040; 87637; 87641; 93005; 93306; 96361; 96372; 96374; 99221; 99285; 70450; 71046; 74176; 74181; 76705; 81003; 81015; 82150; 82270; 82607; 82728; 82746; 83036; 83540; 83550; 83615; 83735; 83880; 84439; 84443; 84466; 84484; 85014; 85018; 85025; 85045; 85379; 85610; 85730; 86870; 86880; 93010; 99222; 99232; 99239; J0696; J1815; J2405; J2470; J2543; J3490

== ENCOUNTER 2023-09-18 16:52 | Emergency (ER) | payer MEDICARE, SELFPAY ==
[2023-09-18 17:00] VITALS: BP 108/55; PULSE 59; RESP 15; TEMP 35.9
[2023-09-18 17:08] VITALS: BP 108/55; PULSE 59; RESP 15; TEMP 35.9; O2SAT 96
--- NOTE | 2023-09-18 17:27 | ED.GENADUL_ITS ---
Discharge Plan Disposition Patient Disposition: Nursing Home Facility(SNF) Condition: Improving Discharge Details Clinical Impression: UTI (urinary tract infection) Primary Care Provider: Elmer Perdomo ED Provider: Fito Spangler Home Meds and New Rx's Prescriptions: New amoxicillin-pot clavulanate 875-125 mg tablet 1 tab PO BID Qty: 14 0RF Continued acetaminophen 325 mg capsule 650 mg PO Q4H PRN albuterol-budesonide 90-80 mcg/actuation HFA aerosol inhaler 2 inh inhalation BID PRN Eliquis 5 mg tablet 5 mg PO BID famotidine [Acid Controller] 20 mg tablet 20 mg PO DAILY fluticasone propionate [Allergy Relief (fluticasone)] 50 mcg/actuation spray,suspension 1 spray intranasal BID PRN Rx Instructions: administer into each nostril insulin lispro [Humalog KwikPen Insulin] 100 unit/mL insulin pen 1 sliding scale dose subcut USEASDIRECTD melatonin 5 mg capsule 5 mg PO .daily hs polyethylene glycol 3350 [ClearLax] 17 gram powder in packet 17 g PO ONCE PRN Rx Instructions: give if no bowel movement in past 72 hours cholecalciferol (vitamin D3) 50 mcg (2,000 unit) tablet 2,000 unit PO DAILY bisacodyl [Dulcolax (bisacodyl)] 10 mg suppository 10 mg MA DAILY PRN Saccharomyces boulardii [Daily Probiotic (S. boulardii)] 250 mg capsule 250 mg PO BID magnesium hydroxide [Blackman Milk of Magnesia] 400 mg/5 mL suspension 5 ml PO DAILY PRN nystatin 100,000 unit/gram cream 1 applic topical DAILY ondansetron 4 mg tablet,disintegrating 4 mg PO Q6H PRN pantoprazole [Protonix] [address] for susp in packet 40 mg PO DAILY rosuvastatin [Crestor] 10 mg tablet 10 mg PO DAILY folic acid 1 mg tablet 1 mg PO DAILY Qty: 30 0RF torsemide 100 mg tablet 50 mg PO DAILY Patient Comments: starts tomorrow 09/19/23 Discharge Instructions Instructions: Urinary Tract Infection in Women (ED) Discharge Data Discharge Date/Time-TO BE ENTERED AT DEPARTURE: 09/18/23 22:46 Discharge Physician: Fito Spangler HPI General Date/Time Provider Initiated Documentation: 09/18/23 17:05 . HPI Narrative: Patient presents emergency department sent in from the rehab center because she was confused and delirious this morning not making sense with sluggish speech which improved. He states he feels better now but states that she is very tired. Sister is here for she was here a week ago for similar symptoms. Denies any nausea vomiting diarrhea denies any urinary symptoms although according to the sister she was giving a urinary analgesic today. Related Data Home Medications Medication Instructions Recorded Confirmed acetaminophen 325 mg capsule 650 mg PO Q4H PRN 08/21/23 09/18/23 albuterol 90 mcg-budesonide 80 2 inh inhalation BID PRN 08/21/23 09/18/23 mcg/actuation HFA aerosol inhaler apixaban 5 mg tablet (Eliquis) 5 mg PO BID 08/21/23 09/18/23 famotidine 20 mg tablet (Acid 20 mg PO DAILY 08/21/23 09/18/23 Controller) fluticasone propionate 50 1 spray intranasal BID PRN 08/21/23 09/18/23 mcg/actuation nasal spray,suspension (Allergy Relief (fluticasone)) insulin lispro 100 unit/mL 1 sliding scale dose subcut 08/21/23 09/18/23 subcutaneous pen (Humalog KwikPen USEASDIRECTD (U-100) Insulin) melatonin 5 mg capsule 5 mg PO .daily hs 08/21/23 09/18/23 polyethylene glycol 3350 17 gram 17 g PO ONCE PRN 08/21/23 09/18/23 oral powder packet (ClearLax) Saccharomyces boulardii 250 mg 250 mg PO BID 09/11/23 09/18/23 capsule (Daily Probiotic (S. boulardii)) bisacodyl 10 mg rectal suppository 10 mg MA DAILY PRN 09/11/23 09/18/23 (Dulcolax (bisacodyl)) cholecalciferol (vitamin D3) 50 2,000 unit PO DAILY 09/11/23 09/18/23 mcg (2,000 unit) tablet magnesium hydroxide 400 mg/5 mL 5 ml PO DAILY PRN 09/11/23 09/18/23 oral suspension (Blackman Milk of Magnesia) nystatin 100,000 unit/gram topical 1 applic topical DAILY 09/11/23 09/18/23 cream ondansetron 4 mg disintegrating 4 mg PO Q6H PRN 09/11/23 09/18/23 tablet pantoprazole 40 mg granules 40 mg PO DAILY 09/11/23 09/18/23 delayed-release for susp in packet (Protonix) rosuvastatin 10 mg tablet (Crestor) 10 mg PO DAILY 09/11/23 09/18/23 folic acid 1 mg tablet 1 mg PO DAILY #30 tabs 09/13/23 09/18/23 amoxicillin 875 mg-potassium 1 tab PO BID #14 tabs 09/18/23 clavulanate 125 mg tablet torsemide 100 mg tablet 50 mg PO DAILY 09/18/23 09/18/23 Previous Rx's Medication Instructions Recorded folic acid 1 mg tablet 1 mg PO DAILY #30 tabs 09/13/23 amoxicillin 875 mg-potassium 1 tab PO BID #14 tabs 09/18/23 clavulanate 125 mg tablet Allergies Allergy/AdvReac Type Severity Reaction Status Date / Time prednisone AdvReac Severe Psychosis Verified 09/11/23 22:48 azithromycin AdvReac Intermediate Unknown Unverified 09/11/23 22:48 latex AdvReac Intermediate Skin Rash Unverified 09/11/23 22:48 semaglutide [From Ozempic] AdvReac Intermediate Unknown Unverified 09/11/23 22:48 metformin AdvReac Mild Unknown Unverified 09/11/23 22:48 General Stated Complaint: AMS/LOC SUZAN: 3 Review of Systems Narrative: Review of Systems: Constitutional: No fevers, chills, sweats Eye: No recent visual problems ENT: No ear pain, nasal congestion, sore throat Respiratory: No shortness of breath, cough Cardiovascular: No Chest pain, palpitations, syncope Gastrointestinal: No nausea, vomiting, diarrhea Genitourinary: No hematuria Olvin/Lymph: Negative for bruising tendency, swollen lymph glands Endocrine: Negative for excessive thirst, excessive hunger Musculoskeletal: No back pain, neck pain, joint pain, muscle pain, decreased range of motion Integumentary: No rash, pruritus, abrasions Neurologic: Alert & oriented X 4 Psychiatric: No anxiety, depression Exam Narrative Exam Narrative: Exam; vitals signs as reported above normal Constitutional; In no acute distress, afebrile General: cooperative, healthy appearing, comfortable and no acute distress HEENT: Head: normal to inspection, no palpable skull fracture and normocephalic atraumatic Eyes: : appearance normal, both eyes and all related structures EOM intact bilaterally Pupils: PERRL : conjunctiva normal Direct ophthalmoscopy: normal light reflex, normal conjunctiva, normal visual acuity Ears: Normal TM, normal external canal Nose: normal no rhinorreha Neck no JVD, supple non tender Neck: normal visual inspection, full ROM and no lymphadenopathy Chest: normal inspection of the chest Respiratory : normal respiratory effort and able to speak in complete sentences no wheezing no rales Cardio Rate: regular rate, rhythm: regular rhythm normal heart sounds S1 and S2 no murmurs, gallops, or rubs GI : normal to inspection, normal bowel sounds, soft, non tender, non distended, no organomegaly Back/Spine/ no CVA tenderness Thoracic/Lumbar Spine: no tenderness or deformities Skin no rashes or lesions Neuro: patient alert oriented x 4 and no meningeal signs, Cranial Nerves: CN's II-XI intact bilaterally, Cognition: normal cognition, Speech: speech normal, Gait: normal gait, Depp tendon reflexes normal 2+ muscle strength 5/5 bilaterally Extremities, no edema, full range of motion, decreased strength at baseline : normal Course Vital Signs Vital signs: Vital Signs Temperature 35.9 C L 09/18/23 17:00 Pulse 59 L 09/18/23 17:00 Respiratory Rate 15 09/18/23 17:00 Blood Pressure 108/55 L 09/18/23 17:00 Temperature 35.9 C L 09/18/23 17:08 Temperature Source Oral 09/18/23 17:00 Pulse 59 L 09/18/23 17:08 Respiratory Rate 15 09/18/23 17:08 Respiratory Effort Normal 09/18/23 17:08 Respiratory Depth Normal 09/18/23 17:08 Respiratory Pattern Normal 09/18/23 17:08 Blood Pressure 108/55 L 09/18/23 17:08 Blood Pressure Position Sitting 09/18/23 17:08 Pulse Oximetry 96 09/18/23 17:08 Oxygen Delivery Method Room Air 09/18/23 17:08 Oxygen Flow Rate 0 09/18/23 17:08 Medical Decision Making MDM: Summary: Patient was brought by the sister to the emergency department stating that she had an episode of confusion in the morning which has happened previous she had UTI treated but was never treated for it. In emergency department she is at baseline. She is already anticoagulated for atrial fibrillation and has had previous TIAs but this does not seem like a TIA for she does not have any weakness numbness or upper EXTR or lower extremity increasing differences from baseline. She had labs done in the emergency department and a CT scan which are totally normal or at baseline she had a urinalysis that shows a UTI. I consulted with the hospitalist and the family are insisting she got admitted despite the fact that she is at a rehab center. It is clear that the family is very unhappy with the care at the rehab center and wanted to see if she will stay for observation but the hospitalist states that the UTI could be treated as an outpatient. She received a dose of ceftriaxone and will be discharged on Augmentin. Data Review Analysis All the data on this patient was reviewed by me including laboratory and imaging studies as well as bedside studies performed by me Independent review of Studies Imaging CT scan as described above negative Lab: Labs are at baseline except for urinalysis showed pyuria Risk Stratification: Patient with a uncomplicated UTI and will be treated as an outpatient and discharged her exam is completely unremarkable she is alert oriented and cooperative and I spoke with the family that they should discuss to see if they want to change her from the fdc she resides Differential Diagnosis: 1. Urinary tract infection 2. Dehydration 3. Altered mental status 4. Delirium 5. TIA Consultants: As spoken above I discussed with the hospitalist will not admit the patient for he feels a UTI uncomplicated we treated in the fdc where she resides Shared disposition: I have shared the opinion the hospitalist in mind to the family who agreed that she could be taking back to her fdc for she is at baseline Impression: Medical Records Medical records reviewed: Yes I reviewed the patient's medical records. Lab Data Lab results reviewed: Yes I reviewed the patient's lab results. Quality:SDOH Health Related Social Needs: No Data to Display PFSH All Active Problems (Updated 09/18/23 @ 22:06 by Fito Spangler MD) Thrombocytopenia (Chronic) Sarcoid (Acute) CVA (cerebral vascular accident) (Chronic) CHF (congestive heart failure) (Chronic) History of radiation therapy (Acute) Pelvic for endometrial cancer Environmental allergies (Chronic) Asthma (Chronic) Type II diabetes mellitus (Acute) Endometrial cancer, FIGO stage IIIB (Acute) That was treated with surgery and radiation in 2015 Gallstones without obstruction of gallbladder (Acute) Arterial atherosclerosis (Acute) Obesity, Class III, BMI 40-49.9 (morbid obesity) (Acute) Elevated troponin (Acute) Pancreatitis (Chronic) Stage 4 chronic kidney disease (Acute) UTI (urinary tract infection) (Acute) Anemia (Chronic) Delirium (Acute) Paroxysmal A-fib (Acute) Hyperkalemia (Acute) Medical History Dementia Surgical History S/P GOYO (total abdominal hysterectomy) Social History Smoking/Tobacco Use Status: Unknown Smoking risk assessment performed?: Yes Housing: house
--- NOTE | 2023-09-18 17:30 | DI.CT_ITS ---
Exam(s) CT HEAD WO EXAM: CT HEAD WO CLINICAL HISTORY: confused. TECHNIQUE: Imaging Protocol: Axial computed tomography images with coronal and sagittal reformatted images were created and reviewed COMPARISON: CT CT HEAD WO from 09/11/2023 FINDINGS: There are no skull fractures. There is no fluid in the visualized paranasal sinuses. There is no evidence of intracranial hemorrhage, mass effect, or shift of midline structures. There are no extra-axial fluid collections. The ventricles are not enlarged or shifted and there is no blo od within the ventricular system nor within the basal cisterns. Symmetrical frontal atrophy is again noted, unchanged. IMPRESSION: No acute intracranial findings on this noninfused CT scan of the brain. Symmetrical bifrontal atrophy again noted. Called by myself to ER physician. RADIATION DOSE DELIVERED: 693.94mGy.cm Total DLP DATA REPOSITORY: All CT scans at this facility are submitted to the National Radiology Data Registry (NRDR) Dose Index Registry (DIR) with the [employer] ([employer]). RADIATION OPTIMIZATION: All CT scans at this facility use at least one of these dose optimization te chniques: automated exposure control; mA and/or kV adjustment per patient size (includes targeted exa ms where dose is matched to clinical indication); or iterative reconstruction.
[2023-09-18 17:51] LABS: Abs Immature Grans 0.02 10^3/uL (0.0-0.06); Absolute Basophil Count 0.01 10^3/uL (0.0-0.2); Absolute Eosinophil Count 0.18 10^3/uL (0.0-0.7); Absolute Lymphocyte Count 0.58 10^3/uL (1.2-3.4); Absolute Monocyte Count 0.29 10^3/uL (0.1-0.8); Absolute Neutrophil Count 3.32 10^3/uL (1.2-6.7); Basophils % 0.2 %; Eosinophils % 4.1 %; HCT 24.9 % (36.0-46.0); HGB 8.3 g/dL (11.2-15.7); Immature Grans % 0.5 %; Lymphocytes % 13.2 %; MCH 30.9 pg (27.0-33.0); MCHC 33.3 % (32.0-36.0); MCV 93 fL (80-95); MPV 11.8 fL (8.0-11.0); Monocytes % 6.6 %; Neutrophils % 75.4 %; Nucleated RBC 1.4 % (0.0-0.3); RBC 2.69 10^6/uL (3.93-5.22); RDW 18.3 % (11.7-14.6); RDW-SD 62.5 fL
[2023-09-18 18:02] LABS: Lipase 55 U/L (16-77)
[2023-09-18 18:08] LABS: ALT 25 U/L (14-59); AST 24 U/L (15-37); Albumin 2.1 g/dL (3.4-5.0); Alkaline Phosphatase 179 U/L (46-116); Anion Gap 8.3 mmol/L (3-11); Anisocytosis 1+; BUN 19 mg/dL (7-18); Bilirubin, Total 0.5 mg/dL (0.2-1.0); CO2 23.7 mmol/L (21.0-32.0); CREATININE 1.8 mg/dL (0.55-1.02); Calcium 9.1 mg/dL (8.5-10.1); Chloride 102 mmol/L (98-107); Diff Comment RBC Morph Reviewed; Estimated GFR 30.88 (mL/min/1.73m2); Glucose 84 mg/dL (74-106); Magnesium 2.1 mg/dL (1.8-2.4); Platelet Count 88 10^3/uL (130-400); Potassium 3.2 mmol/L (3.5-5.1); Sodium 134 mmol/L (136-145); Total Protein 5.9 g/dL (6.4-8.2)
[2023-09-18 18:09] LABS: Troponin I 78 ng/L (< or =60)
[2023-09-18] MEDS: Normal Saline 1,000 ML 1000 ML IV (19:42)
[2023-09-18 21:32] LABS: Troponin I 78 ng/L (< or =60)
[2023-09-18 21:49] LABS: Bilirubin Negative (Negative); Blood Small (Negative); Clarity Clear (Clear); Glucose Negative (Negative); Ketones Negative (Negative); Leukocyte Esterase Small (Negative); Nitrite Negative (Negative); Urobilinogen 0.2 mg/dL (Up to 0.2)
[2023-09-18 22:00] LABS: Bacteria Rare HPF (Negative); C & S Indicated? Yes; Casts Negative LPF (Negative); Crystals Negative HPF (Negative); Epithelial Cells Few HPF (Negative); Mucus Negative (Negative); RBC 0-2 HPF (0-2); WBC 20-50 HPF (0-5)
[2023-09-18] MEDS: cefTRIAXone 1 GM/50 ML BAG IVPB (22:13)
[2023-09-18 22:43] VITALS: BP 110/62; PULSE 21; RESP 16; O2SAT 94
== END 2023-09-18 22:46 | disposition skilled nursing facility (03) ==
PROVIDERS: Emergency Provider Emergency Medicine Emergency Medical Services; PCP Family Medicine
DX: N39.0 Urinary tract infection, site not specified (principal); I48.0 Paroxysmal atrial fibrillation; E11.22 Type 2 diabetes mellitus with diabetic chronic kidney disease; N18.4 Chronic kidney disease, stage 4 (severe); I50.9 Heart failure, unspecified; Z86.73 Personal history of transient ischemic attack (TIA), and cerebral infarction without residual deficits; Z79.01 Long term (current) use of anticoagulants; Z79.4 Long term (current) use of insulin
CPT/HCPCS: 80053; 83690; 96361; 96365; 99284; 70450; 81003; 81015; 83735; 84484; 85025; 87086; J0696

== ENCOUNTER 2023-09-27 18:18 | Outpatient (REF) | payer MEDICARE, SELFPAY ==
[2023-09-27 18:03] LABS: Abs Immature Grans 0.05 10^3/uL (0.0-0.06); Absolute Basophil Count 0.02 10^3/uL (0.0-0.2); Absolute Eosinophil Count 0.31 10^3/uL (0.0-0.7); Absolute Lymphocyte Count 0.64 10^3/uL (1.2-3.4); Absolute Monocyte Count 0.35 10^3/uL (0.1-0.8); Absolute Neutrophil Count 4.95 10^3/uL (1.2-6.7); Basophils % 0.3 %; Eosinophils % 4.9 %; HCT 25.1 % (36.0-46.0); HGB 8.3 g/dL (11.2-15.7); Immature Grans % 0.8 %; Lymphocytes % 10.1 %; MCH 30.6 pg (27.0-33.0); MCHC 33.1 % (32.0-36.0); MCV 93 fL (80-95); Monocytes % 5.5 %; Neutrophils % 78.4 %; Nucleated RBC 0.5 % (0.0-0.3); RBC 2.71 10^6/uL (3.93-5.22); RDW-SD 57.1 fL; WBC 6.32 10^3/uL (4.4-10.8)
[2023-09-27 18:13] LABS: ALT 29 U/L (14-59); AST 38 U/L (15-37); Albumin 2.2 g/dL (3.4-5.0); Alkaline Phosphatase 204 U/L (46-116); Anion Gap 9.8 mmol/L (3-11); BUN 28 mg/dL (7-18); Bilirubin, Total 0.5 mg/dL (0.2-1.0); CO2 28.2 mmol/L (21.0-32.0); CREATININE 2.2 mg/dL (0.55-1.02); Chloride 95 mmol/L (98-107); Estimated GFR 24.27 (mL/min/1.73m2); Glucose 179 mg/dL (74-106); Magnesium 1.3 mg/dL (1.8-2.4); Sodium 133 mmol/L (136-145); Total Protein 5.6 g/dL (6.4-8.2)
[2023-09-27 18:20] LABS: Potassium 2.9 mmol/L (3.5-5.1)
[2023-09-27 18:39] LABS: Anisocytosis 1+; Diff Comment RBC Morph Reviewed; Platelet Count 101 10^3/uL (130-400); Polychromasia Present
== END 2023-09-27 18:19 | disposition home or self-care (01) ==
LOC: LBN 18:18
PROVIDERS: PCP Family Medicine; Visit Provider Nurse Practitioner Family
DX: E87.5 Hyperkalemia (principal); E11.9 Type 2 diabetes mellitus without complications; N18.4 Chronic kidney disease, stage 4 (severe); D64.9 Anemia, unspecified; R60.0 Localized edema
CPT/HCPCS: 80053; 83735; 85025

== ENCOUNTER 2023-09-27 18:45 | Emergency (ER) | payer MEDICARE, BC, SELFPAY ==
[2023-09-27] VITALS (8 sets, daily range): BP systolic 81–128; BP diastolic 34–91; PULSE 49–78; RESP 13–16; TEMP 35–36.6; O2SAT 94–99
--- NOTE | 2023-09-27 18:45 | RT.EKG_ITS ---
APPROVED REPORT Exam: Resting ECG Reason for Exam: low K Patient Location: E HR:66 bpm ECG Measurements Heart Rate 66 AXIS KS 235 P 75 QRSd 113 QRS 39 QT 438 T 94 QTc 460 Conclusion Sinus rhythm...normal P axis, V-rate 60- 99 Prolonged KS interval...KS >220, V-rate 50- 90 Nonspecific T abnormalities, lateral leads...T <-0.10mV, I aVL V5 V6 Normal sinus rhythm at a rate of 66 with first-degree AV block and a KS interval of 235. QTc within normal limits. Normal axis. T wave inversion in aVL. No ST segment abnormalities. No acute injury pattern. Compared to prior dated last month T wave inversion in aVL is new.
--- NOTE | 2023-09-27 18:54 | ED.GENADUL_ITS ---
Discharge Plan Disposition Patient Disposition: Home Discharge Details Clinical Impression: Localized swelling of both lower extremities, Acute UTI Primary Care Provider: Elmer Perdomo ED Provider: Jewel Cunningham [place] Meds and New Rx's Prescriptions: New cephalexin 250 mg capsule 250 mg PO QID 7 Days Qty: 28 0RF potassium chloride 20 mEq packet 20 meq PO BID Qty: 50 0RF Rx Instructions: Please take this for the next 5 days. Continued acetaminophen 325 mg capsule 650 mg PO Q4H PRN albuterol-budesonide 90-80 mcg/actuation HFA aerosol inhaler 2 inh inhalation BID PRN Eliquis 5 mg tablet 5 mg PO BID famotidine [Acid Controller] 20 mg tablet 20 mg PO DAILY fluticasone propionate [Allergy Relief (fluticasone)] 50 mcg/actuation spray,suspension 1 spray intranasal BID PRN Rx Instructions: administer into each nostril insulin lispro [Humalog KwikPen Insulin] 100 unit/mL insulin pen 1 sliding scale dose subcut USEASDIRECTD melatonin 5 mg capsule 5 mg PO .daily hs polyethylene glycol 3350 [ClearLax] 17 gram powder in packet 17 g PO ONCE PRN Rx Instructions: give if no bowel movement in past 72 hours cholecalciferol (vitamin D3) 50 mcg (2,000 unit) tablet 2,000 unit PO DAILY bisacodyl [Dulcolax (bisacodyl)] 10 mg suppository 10 mg HI DAILY PRN Saccharomyces boulardii [Daily Probiotic (S. boulardii)] 250 mg capsule 250 mg PO BID magnesium hydroxide [Blackman Milk of Magnesia] 400 mg/5 mL suspension 5 ml PO DAILY PRN nystatin 100,000 unit/gram cream 1 applic topical DAILY ondansetron 4 mg tablet,disintegrating 4 mg PO Q6H PRN pantoprazole [Protonix] [address] for susp in packet 40 mg PO DAILY rosuvastatin [Crestor] 10 mg tablet 10 mg PO DAILY folic acid 1 mg tablet 1 mg PO DAILY Qty: 30 0RF torsemide 100 mg tablet 50 mg PO DAILY Patient Comments: starts tomorrow 09/19/23 Discharge Instructions Instructions: Urinary Tract Infection, Adult ED Additional Instructions: You were seen in the emergency department for your low potassium. You are receiving oral potassium repletion. Please continue taking your diuretic. You also were found to have a urinary tract infection for which you are receiving antibiotics that you should take as directed. Please return to the emergency department if you develop fevers shortness of breath or any chest pain. Discharge Data Discharge Date/Time-TO BE ENTERED AT DEPARTURE: 09/27/23 23:00 HPI General Date/Time Provider Initiated Documentation: 09/27/23 18:52 . HPI Narrative: MDM This is a chronically ill-appearing afebrile and not tachycardic 67-year-old female with outpatient hypokalemia but QTc within normal limits and no vomiting to suggest increased risk for ongoing losses. Patient has had diarrhea she reports daily for the past several days. Given outpatient antibiotic use will test for C. difficile if patient makes stool in the ED. No chest pain to suggest ACS so I did not send a D-dimer. No pain out of proportion to my suspicion is low for necrotizing soft tissue infection. Patient does have lower extremity 2+ nonpitting edema and is on outpatient diuretic so this certainly could be the cause of her hypokalemia. Patient's sister tells me in the past that she has had hyperkalemia. Will repeat potassium level and treat if hypokalemia persists. Concern the patient dizziness she reports that it is chr onic and worse when she stands up. She has no nystagmus and this resulted did not apply the hints exam as my suspicion was low for posterior circulation CVA. No recent chiropractic manipulation to suggest cervical arterial dissection. She does endorse persistent dysuria so we will send a urinalysis. She has been using nystatin for candidal rash in her inguinal creases. She said no nausea nor vomiting to suggest increased risk for esophageal rupture. No shortness of breath to suggest acute heart failure. 8:15 PM Patient was found to have moderate leuk esterase and moderate hematuria. Given her dysuria I was suspicious for UTI. She also was found to be newly hypotensive with a blood pressure of 81/41. As result of this new blood pressure I was concerned for sepsis so I ordered 2 sets of blood cultures lactate treat empirically with 2 g of ceftriaxone and vancomycin. Patient's basic metabolic panel confirmed hypokalemia with a serum potassium of 2.9. Patient is CKD but no KENDALL. Hyperglycemia but no anion gap and normal bicarbonate??not consistent with DKA. Mild hyponatremia. Patient has had blood pressures before in the 90s however no documented pressures in the 80s. She has had microscopy recently showing gram-positive mixed mahogany. She does tell me she has had diarrhea daily and so we will send C. difficile testing and place patient on precautions. 8:34 PM CBC shows normocytic anemia. No leukocytosis. Mild worsened thrombocytopenia. 09/29 Late charting due to patient care. Patient's blood pressure improved. I transiently ordered some Norepinephrine as I was concerned about the possibility of septic shock. Fortunately the patient's lactate was unremarkable and she had no subsequent episodes of hypotension. Bedside echo was reassuring against acute heart failure. She felt baseline. I explained that we would treat her UTI. She did not make diarrhea in the emergency department so I was not able to send the C. difficile sample. I met with the patient and her sister and advised that if they have any concerns or if patient had any syncopal episodes felt weak or develop a fever that she should return to emergency department. Patient is resistant to return indications and patient was discharged with an empiric trial of expectant outpatient management. Chronic conditions affecting the care of the patient: Obesity History obtained from an outside historian: Paramedics External record [place]: [facility] [place] [Diagnostic interpretations performed by me: Per my independent interpretation EKG shows: Normal sinus rhythm at a rate of 66 with first-degree AV block and a HI interval of 235. QTc within normal limits. Normal axis. T wave inversion in aVL. No ST segment abnormalities. No acute injury pattern. Compared to prior dated last month T wave inversion in aVL is new. ]Medications: Antibiotics Social determinants of health affecting disposition: N/A Management discussed with: N/A Treatment/interventions considered: Hospitalization but deferred given patient is from a alf facility Response to therapies provided: N/A HPI This is a 67-year-old female with history of heart failure diabetes and obesity arriving to the emergency department via EMS in the setting of hypokalemia. Patient is on outpatient diuretics and potassium. She reports that her potassium was 2.9 as checked earlier today at an outpatient lab draw. She reports chronic dizziness. She has recently been treated for urinary tract infection but is having persistent dysuria. Her dizziness only occurs when she stands up and this has been ongoing for months. She has had diarrhea every day for the past several weeks. She denies nausea vomiting chest pain shortness of breath. She is on nystatin for inguinal candidiasis. No fevers. No chills. N o other complaints. Exam General: Chronically ill-appearing in no acute distress speaking in complete sentences. Head: Normocephalic, atraumatic. Eye: Extraocular eye movements intact. No conjunctival injection. No scleral icterus. Ear, nose, mouth, throat: Grossly normal inspection. Normal voice, handling secretions normally. Neck: Trachea midline. Cardiovascular: Well-perfused distal extremities. Regular rate and rhythm Respiratory: Nonlabored respiration. Clear lungs bilaterally Gastrointestinal: Nondistended abdomen. Soft nontender. : Bilateral inguinal candidal rash with erythema and satellite lesions. Back: No signs of sacral decubitus ulcers. Musculoskeletal: Bilateral 2+ nonpitting lower extremity edema. Moving all 4 extremities spontaneously. Skin: Normal for age and race, grossly normal temperature and turgor. No acute rash. Neurologic: Alert and appropriate, no apparent acute deficits. GCS 15. Psychiatric: Mood and manner are appropriate. Grooming and personal hygiene are appropriate. Related Data Home Medications Medication Instructions Recorded Confirmed acetaminophen 325 mg capsule 650 mg PO Q4H PRN 08/21/23 09/27/23 albuterol 90 mcg-budesonide 80 2 inh inhalation BID PRN 08/21/23 09/27/23 mcg/actuation HFA aerosol inhaler apixaban 5 mg tablet (Eliquis) 5 mg PO BID 08/21/23 09/27/23 famotidine 20 mg tablet (Acid 20 mg PO DAILY 08/21/23 09/27/23 Controller) fluticasone propionate 50 1 spray intranasal BID PRN 08/21/23 09/27/23 mcg/actuation nasal spray,suspension (Allergy Relief (fluticasone)) insulin lispro 100 unit/mL 1 sliding scale dose subcut 08/21/23 09/27/23 subcutaneous pen (Humalog KwikPen USEASDIRECTD (U-100) Insulin) melatonin 5 mg capsule 5 mg PO .daily hs 08/21/23 09/27/23 polyethylene glycol 3350 17 gram 17 g PO ONCE PRN 08/21/23 09/27/23 oral powder packet (ClearLax) Saccharomyces boulardii 250 mg 250 mg PO BID 09/11/23 09/27/23 capsule (Daily Probiotic (S. boulardii)) bisacodyl 10 mg rectal suppository 10 mg HI DAILY PRN 09/11/23 09/27/23 (Dulcolax (bisacodyl)) cholecalciferol (vitamin D3) 50 2,000 unit PO DAILY 09/11/23 09/27/23 mcg (2,000 unit) tablet magnesium hydroxide 400 mg/5 mL 5 ml PO DAILY PRN 09/11/23 09/27/23 oral suspension (Blackman Milk of Magnesia) nystatin 100,000 unit/gram topical 1 applic topical DAILY 09/11/23 09/27/23 cream ondansetron 4 mg disintegrating 4 mg PO Q6H PRN 09/11/23 09/27/23 tablet pantoprazole 40 mg granules 40 mg PO DAILY 09/11/23 09/27/23 delayed-release for susp in packet (Protonix) rosuvastatin 10 mg tablet (Crestor) 10 mg PO DAILY 09/11/23 09/27/23 folic acid 1 mg tablet 1 mg PO DAILY #30 tabs 09/13/23 09/27/23 torsemide 100 mg tablet 50 mg PO DAILY 09/18/23 09/27/23 cephalexin 250 mg capsule 250 mg PO QID 7 days #28 caps 09/27/23 potassium chloride 20 mEq oral 20 meq PO BID #50 ea 09/27/23 packet Previous Rx's Medication Instructions Recorded folic acid 1 mg tablet 1 mg PO DAILY #30 tabs 09/13/23 cephalexin 250 mg capsule 250 mg PO QID 7 days #28 caps 09/27/23 potassium chloride 20 mEq oral 20 meq PO BID #50 ea 09/27/23 packet Allergies Allergy/AdvReac Type Severity Reaction Status Date / Time prednisone AdvReac Severe Psychosis Verified 09/11/23 22:48 azithromycin AdvReac Intermediate Unknown Unverified 09/11/23 22:48 latex AdvReac Intermediate Skin Rash Unverified 09/11/23 22:48 semaglutide [From Ozempic] AdvReac Intermediate Unknown Unverified 09/11/23 22:48 metformin AdvReac Mild Unknown Unverified 09/11/23 22:48 General Stated Complaint: Dizzy/Sync SUZAN: 3 Course Vital Signs Vital signs: Vital Signs Temperature 35.7 C L 09/27/23 18:46 Pulse 78 09/27/23 18:46 Respiratory Rate 16 09/27/23 18:46 Blood Pressure 128/48 L 09/27/23 18:46 Pulse Oximetry 97 09/27/23 18:46 Temperature 35.7 C L 09/27/23 18:46 Pulse 78 09/27/23 18:46 Respiratory Rate 16 09/27/23 18:46 Blood Pressure 128/48 L 09/27/23 18:46 Pulse Oximetry 97 09/27/23 18:46 Medical Decision Making Quality:SDOH Health Related Social Needs: No Data to Display PFSH All Active Problems (Updated 09/27/23 @ 22:18 by Jewel Cunningham MD) Acute UTI (Acute) Localized swelling of both lower extremities (Acute) Thrombocytopenia (Chronic) Sarcoid (Acute) CVA (cerebral vascular accident) (Chronic) CHF (congestive heart failure) (Chronic) History of radiation therapy (Acute) Pelvic for endometrial cancer Environmental allergies (Chronic) Asthma (Chronic) Type II diabetes mellitus (Acute) Endometrial cancer, FIGO stage IIIB (Acute) That was treated with surgery and radiation in 2014 Gallstones without obstruction of gallbladder (Acute) Arterial atherosclerosis (Acute) Obesity, Class III, BMI 40-49.9 (morbid obesity) (Acute) Elevated troponin (Acute) Pancreatitis (Chronic) Stage 4 chronic kidney disease (Acute) UTI (urinary tract infection) (Acute) Anemia (Chronic) Delirium (Acute) Paroxysmal A-fib (Acute) Hyperkalemia (Acute) Medical History Dementia Surgical History S/P GOYO (total abdominal hysterectomy) Social History Smoking/Tobacco Use Status: Never Smoking risk assessment performed?: Yes Alcohol Intake: never Drug use: Never Housing: house POCUS Exam (ED) Limited Cardiac Exam DATE OF EXAM: 09/27/23 TIME OF EXAM: 21:25 PROVIDER THAT PERFORMED THE STUDY: Jewel Cunningham IS THIS A REPEAT EXAM DURING THIS ENCOUNTER: no REASON FOR EXAM: Other indication: Low blood pressure VISUALIZED STRUCTURES: Four Chambers, Left ventricle, LVOT and Other structure: Bilateral lungs VIEW OBTAINED: Apical 4-Chamber, Parasternal long-axis and Subxiphoid PERTINENT FINDINGS/IMPRESSION: No LV dysfunction, No pericardial effusion and No RV dilation DIFFERENTIAL DIAGNOSES: Aortic outflow track less than 4 cm, good squeeze, RV less than LV, no significant pericardial effusion. No significant B-lines bilaterally. Exam complete
[2023-09-27 19:55] LABS: HCT 23.1 % (36.0-46.0); HGB 7.7 g/dL (11.2-15.7); MCH 30.7 pg (27.0-33.0); MCHC 33.3 % (32.0-36.0); MCV 92 fL (80-95); MPV 12.4 fL (8.0-11.0); RBC 2.51 10^6/uL (3.93-5.22); RDW 16.8 % (11.7-14.6); RDW-SD 57.1 fL; WBC 6.82 10^3/uL (4.4-10.8)
[2023-09-27 20:08] LABS: Anion Gap 7.3 mmol/L (3-11); BUN 29 mg/dL (7-18); CO2 27.7 mmol/L (21.0-32.0); CREATININE 2.3 mg/dL (0.55-1.02); Calcium 9.1 mg/dL (8.5-10.1); Chloride 96 mmol/L (98-107); Estimated GFR 23.01 (mL/min/1.73m2); Glucose 218 mg/dL (74-106); Potassium 2.9 mmol/L (3.5-5.1); Sodium 131 mmol/L (136-145)
[2023-09-27 20:09] LABS: Bilirubin Negative (Negative); Blood Trace-intact (Negative); Clarity Sl Cloudy (Clear); Glucose Negative (Negative); Ketones Negative (Negative); Leukocyte Esterase Moderate (Negative); Nitrite Negative (Negative); Specific Gravity 1.015 (1.005-1.025); Urobilinogen 0.2 mg/dL (Up to 0.2); pH 5.5 (5-8)
--- NOTE | 2023-09-27 20:15 | DI.RAD_ITS ---
Exam(s) XR PORTABLE CHEST AP EXAM: XR PORTABLE CHEST AP CLINICAL HISTORY: Sepsis TECHNIQUE: 2D digital imaging was performed of the chest. One image was obtained. An AP view was ob tained. COMPARISON: CR,XR XR CHEST 2V PA LATERAL from 09/11/2023 FINDINGS: MEDIASTINUM: Normal. HEART: Normal. PULMONARY VASCULATURE: Normal. LUNGS: Clear. PLEURAL SPACE: No pleural effusion or pneumothorax. BONE:Within normal limits for the patient's age. There is mild inferior subluxation of the humeral he ad relative to the right glenoid. OTHER FINDINGS:Normal. IMPRESSION: 1. No acute pulmonary findings. 2. Mild apparent inferior subluxation of the right glenohumeral joint. Please correlate clinically. DATA REPOSITORY: RADIATION DOSE DELIVERED:
[2023-09-27 20:19] LABS: Platelet Count 93 10^3/uL (130-400)
[2023-09-27 20:20] LABS: Absolute Eosinophil Count 0.14 10^3/uL (0.0-0.7); Absolute Lymphocyte Count 1.02 10^3/uL (1.2-3.4); Absolute Neutrophil Count 5.46 10^3/uL (1.2-6.7); Bands % 1 %
[2023-09-27 20:21] LABS: Anisocytosis 1+; Diff Comment Manual Differential; Polychromasia Present
[2023-09-27 20:34] LABS: Bacteria Rare HPF (Negative); C & S Indicated? Yes; Casts 0-2 Hyaline LPF (Negative); Crystals Negative HPF (Negative); Epithelial Cells Rare HPF (Negative); Mucus Negative (Negative); RBC 0-2 HPF (0-2); WBC 20-50 HPF (0-5)
[2023-09-27] MEDS: cefTRIAXone 2 GM/50 ML BAG IVPB (20:47)
[2023-09-27] MEDS: Normal Saline 500 ML IV (20:47)
[2023-09-27 20:51] LABS: Lactate 1.4 mmol/L (0.6-1.4)
[2023-09-27] MEDS: VANCOMYCIN 2,000 MG in Normal Saline 500 ML 250 MG IVPB (21:19)
--- NOTE | 2023-09-27 21:25 | DI.VRAD_ITS ---
PROCEDURE INFORMATION: Exam: XR Chest Exam date and time: 09/27/2023 8:48 PM Age: 67 years old Clinical indication: Other: Sepsis TECHNIQUE: Imaging protocol: Radiologic exam of the chest. Views: 1 view. COMPARISON: CR XR CHEST 2V PA LATERAL 09/11/2023 4:56 PM FINDINGS: Lungs: Lungs are clear with no infiltrate or nodule. Pleural spaces: Unremarkable. No pleural effusion. No pneumothorax. Heart/Mediastinum: Cardiomediastinal silhouette is normal. Bones/joints: Unremarkable. IMPRESSION: No active cardiopulmonary disease. Dictated and Authenticated by: Kade Lindsay MD. Ordering:GURU Holloway MD
== END 2023-09-27 23:00 | disposition home or self-care (01) ==
PROVIDERS: Emergency Provider Emergency Medicine; PCP Family Medicine
DX: R42 Dizziness and giddiness (principal); R22.43 Localized swelling, mass and lump, lower limb, bilateral; E87.6 Hypokalemia; N39.0 Urinary tract infection, site not specified; I50.9 Heart failure, unspecified; I44.0 Atrioventricular block, first degree; Z86.73 Personal history of transient ischemic attack (TIA), and cerebral infarction without residual deficits; Z79.4 Long term (current) use of insulin; Z79.01 Long term (current) use of anticoagulants
CPT/HCPCS: 36415; 80048; 87040; 93005; 93308; 96365; 96367; 99285; 71045; 81003; 81015; 83605; 85025; 87086; 93010; 99284; J0696; J3370

== ENCOUNTER 2023-09-29 01:12 | Outpatient (REF) | payer MEDICARE, SELFPAY ==
[2023-09-29 01:35] LABS: Bilirubin Negative (Negative); Blood Negative (Negative); Clarity Clear (Clear); Glucose Negative (Negative); Ketones Negative (Negative); Leukocyte Esterase Negative (Negative); Nitrite Negative (Negative); Specific Gravity 1.015 (1.005-1.025); Urobilinogen 0.2 mg/dL (Up to 0.2); pH 5.5 (5-8)
[2023-09-29 01:39] LABS: Bacteria Rare HPF (Negative); C & S Indicated? No; Casts Negative LPF (Negative); Crystals Negative HPF (Negative); Epithelial Cells Rare HPF (Negative); Mucus Negative (Negative); RBC Negative HPF (0-2); WBC Negative HPF (0-5)
== END 2023-09-29 01:13 | disposition home or self-care (01) ==
LOC: LBN 01:12
PROVIDERS: PCP Family Medicine; Visit Provider Nurse Practitioner Family
DX: N39.0 Urinary tract infection, site not specified (principal)
CPT/HCPCS: 81003; 81015

== ENCOUNTER 2023-10-03 14:42 | Outpatient (REF) | payer MEDICARE, SELFPAY ==
[2023-10-03 15:37] LABS: Abs Immature Grans 0.06 10^3/uL (0.0-0.06); Absolute Basophil Count 0.02 10^3/uL (0.0-0.2); Absolute Lymphocyte Count 0.86 10^3/uL (1.2-3.4); Absolute Monocyte Count 0.43 10^3/uL (0.1-0.8); Absolute Neutrophil Count 5.45 10^3/uL (1.2-6.7); Basophils % 0.3 %; Eosinophils % 2.8 %; HCT 23.9 % (36.0-46.0); HGB 7.6 g/dL (11.2-15.7); Immature Grans % 0.9 %; Lymphocytes % 12.3 %; MCH 30.5 pg (27.0-33.0); MCHC 31.8 % (32.0-36.0); MCV 96 fL (80-95); MPV 12.2 fL (8.0-11.0); Monocytes % 6.1 %; Neutrophils % 77.6 %; Nucleated RBC 0.4 % (0.0-0.3); Platelet Count 127 10^3/uL (130-400); RBC 2.49 10^6/uL (3.93-5.22); RDW 17.9 % (11.7-14.6); RDW-SD 61.6 fL; WBC 7.02 10^3/uL (4.4-10.8)
[2023-10-03 16:00] LABS: Anion Gap 5.7 mmol/L (3-11); BUN 24 mg/dL (7-18); CO2 27.3 mmol/L (21.0-32.0); CREATININE 2.1 mg/dL (0.55-1.02); Calcium 9.5 mg/dL (8.5-10.1); Chloride 107 mmol/L (98-107); Estimated GFR 25.67 (mL/min/1.73m2); Glucose 170 mg/dL (74-106); Magnesium 1.5 mg/dL (1.8-2.4); Potassium 5.8 mmol/L (3.5-5.1); Sodium 140 mmol/L (136-145)
== END 2023-10-03 14:43 | disposition home or self-care (01) ==
LOC: LBN 14:42
PROVIDERS: PCP Family Medicine; Visit Provider Nurse Practitioner Family
DX: D64.9 Anemia, unspecified (principal); E87.5 Hyperkalemia; K86.1 Other chronic pancreatitis; I50.9 Heart failure, unspecified
CPT/HCPCS: 80048; 83735; 85025

== ENCOUNTER 2023-10-05 21:40 | Outpatient (REF) | payer MEDICARE, SELFPAY ==
[2023-10-05 22:59] LABS: Anion Gap 10.5 mmol/L (3-11); BUN 25 mg/dL (7-18); CO2 24.5 mmol/L (21.0-32.0); CREATININE 2.3 mg/dL (0.55-1.02); Calcium 9.8 mg/dL (8.5-10.1); Chloride 105 mmol/L (98-107); Estimated GFR 23.01 (mL/min/1.73m2); Glucose 184 mg/dL (74-106); Potassium 4.6 mmol/L (3.5-5.1); Sodium 140 mmol/L (136-145)
== END 2023-10-05 21:41 | disposition home or self-care (01) ==
LOC: LBN 21:40
PROVIDERS: PCP Family Medicine; Visit Provider Family Medicine
DX: N18.4 Chronic kidney disease, stage 4 (severe) (principal)
CPT/HCPCS: 80048

== ENCOUNTER 2023-10-10 13:58 | Outpatient (REF) | payer MEDICARE, SELFPAY ==
[2023-10-10 15:40] LABS: Abs Immature Grans 0.09 10^3/uL (0.0-0.06); Absolute Basophil Count 0.03 10^3/uL (0.0-0.2); Absolute Eosinophil Count 0.11 10^3/uL (0.0-0.7); Absolute Lymphocyte Count 0.71 10^3/uL (1.2-3.4); Absolute Neutrophil Count 6.53 10^3/uL (1.2-6.7); Basophils % 0.4 %; Eosinophils % 1.4 %; HCT 24.1 % (36.0-46.0); HGB 7.6 g/dL (11.2-15.7); Immature Grans % 1.2 %; Lymphocytes % 9.1 %; MCH 30.5 pg (27.0-33.0); MCHC 31.5 % (32.0-36.0); MCV 97 fL (80-95); MPV 10.9 fL (8.0-11.0); Monocytes % 3.9 %; Nucleated RBC 0.3 % (0.0-0.3); Platelet Count 162 10^3/uL (130-400); RBC 2.49 10^6/uL (3.93-5.22); RDW 17.9 % (11.7-14.6); RDW-SD 63.1 fL; WBC 7.77 10^3/uL (4.4-10.8)
[2023-10-10 15:55] LABS: Anion Gap 9.4 mmol/L (3-11); BUN 28 mg/dL (7-18); CO2 25.6 mmol/L (21.0-32.0); CREATININE 2.1 mg/dL (0.55-1.02); Calcium 9.2 mg/dL (8.5-10.1); Chloride 106 mmol/L (98-107); Estimated GFR 25.67 (mL/min/1.73m2); Glucose 174 mg/dL (74-106); Potassium 3.5 mmol/L (3.5-5.1); Sodium 141 mmol/L (136-145)
== END 2023-10-10 13:59 | disposition home or self-care (01) ==
LOC: LBN 13:58
PROVIDERS: PCP Family Medicine; Visit Provider Family Medicine
DX: D64.9 Anemia, unspecified (principal); N18.4 Chronic kidney disease, stage 4 (severe)
CPT/HCPCS: 80048; 85025